=== PATIENT | female | born 2005 | race Caucasian/White ===

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

== ENCOUNTER 2023-07-24 13:30 | Outpatient (RCR) | payer OTHER, SELFPAY | END 2023-09-13 14:11 | disposition home or self-care (01) | PROVIDERS: Visit Provider Orthopaedic Surgery Sports Medicine | DX: M79.A9 Nontraumatic compartment syndrome of other sites (principal); Z98.890 Other specified postprocedural states; M62.81 Muscle weakness (generalized); R26.9 Unspecified abnormalities of gait and mobility; M25.571 Pain in right ankle and joints of right foot; Z51.89 Encounter for other specified aftercare | CPT/HCPCS: 97110; 97112; 97140; 97161 ==

== ENCOUNTER 2023-10-03 23:32 | Emergency (ER) | payer OTHER, SELFPAY ==
[2023-10-03 23:39] VITALS: BP 125/74; PULSE 66; PULSE 68; RESP 18; TEMP 36.7; O2SAT 99; BMI 20.7
--- NOTE | 2023-10-04 00:50 | ED.GENADULT ---
HPI - General Adult General Chief complaint: Back Injury/Pain Stated complaint: back pain/numbness in right arm Time Seen by Provider: 10/03/23 23:45 History of Present Illness HPI narrative: CC: Upper Back Pain w/ Radiation Right Arm pt. with symptoms for 3- 4 days. pain radiates down right arm. denies fevers, n/v. 18-year-old young woman presenting to the emergency department with concern of right neck and upper back atraumatic pain along with feeling numbness and tingling into her right arm with some coldness to the top of her right hand. This seems to have resolved. No loss of strength. She has had soreness in the neck and into her right shoulder intermittently maybe with exercising specifically elliptical as demonstrated and running for some time now. Just really built up over the last few days. Is aggravated a little bit to turn her neck to the right. History of exertional compartment syndrome. Related Data Home Medications ?Medication ?Instructions ?Recorded ?Confirmed aripiprazole 2 mg tablet 4 mg PO QDAY 06/21/23 10/03/23 bupropion HCl 75 mg tablet 75 mg PO QAM 06/21/23 10/03/23 sertraline 100 mg tablet 150 mg PO QDAY 06/21/23 10/03/23 Allergies Allergy/AdvReac Type Severity Reaction Status Date / Time No Known Drug Allergies Allergy Verified 10/03/23 23:42 Review of Systems Status of ROS: Reports: 6 or more systems reviewed and unremarkable except as noted in History and below [facility] Medical History No pertinent past medical history ?Z78.9 - Other specified health status (ICD-10) Surgical History No pertinent past surgical history ?Z78.9 - Other specified health status (ICD-10) Family History Brother Ulcerative colitis Social History Narrative: Student at [employer], sophomore year. Non-smoker. Alcohol, some weekends, not excessive. No illicit drugs. 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 Smoking Status: Never smoker Second hand tobacco smoke exposure: No How often do you have a drink containing alcohol: never AUDIT-C Alcohol total score: 0 Non-prescribed substance use: denies use Exam Narrative: Exam Narrative: Pleasant. NAD. Skin is warm and dry without swelling or erythema. Neck is supple. No midline neck or back tenderness. No deformity. She has some soreness to palpation in the musculature some tension here to upper right side thoracic spine. A little bit in the right paracervical low musculature as well. Well-built musculature over the arms shoulders. No sensory loss at this time apparent. She has strong and equal distal upper extremity pulses. Very good strength bilaterally. No restriction to movement about the shoulders without weakness to resisted internal or external rotation or Neer's testing. Spurling's test is negative. She does however have some worsening of this discomfort and maybe some radiation to the right shoulder with extension of the neck and mild axial pressure Const: Vital Signs, click to edit/add: Vital Signs - 24 hr 10/03/23 23:39 10/03/23 23:39 10/04/23 01:17 Temperature 98.0 F 98.0 F Pulse Rate [Right Pulse Oximeter] 66 Pulse Rate [Right Radial] 68 Respiratory Rate 18 Blood Pressure [Ri ght Upper Arm] 125/74 Pulse Oximetry 99 Oxygen Delivery Me thod Room Air Documenting provider has reviewed patient's vital signs: yes Course Vital Signs Vital signs: Initial Vital Signs Temperature 98.0 F 10/03/23 23:39 Temperature Source Temporal Artery Scan 10/03/23 23:39 Pulse Rate 66 10/03/23 23:39 Pulse Rhythm Regular 10/03/23 23:39 Pulse Strength 3+ Normal 10/03/23 23:39 Respiratory Rate 18 10/03/23 23:39 Blood Pressure 125/74 10/03/23 23:39 Blood Pressure Mean 91 10/03/23 23:39 Blood Pressure Position Sitting 10/03/23 23:39 Pulse Oximetry 99 10/03/23 23:39 Oxygen Delivery Method Room Air 10/03/23 23:39 Vital Signs Temperature 98.0 F 10/03/23 23:39 Pulse Rate 66 10/03/23 23:39 Respiratory Rate 18 10/03/23 23:39 Blood Pressure 125/74 10/03/23 23:39 Pulse Oximetry 99 10/03/23 23:39 Oxygen Delivery Method Room Air 10/03/23 23:39 Temperature 98.0 F 10/04/23 01:35 Pulse Rate 69 10/04/23 01:35 Respiratory Rate 18 10/04/23 01:35 Blood Pressure 118/70 10/04/23 01:35 Pulse Oximetry 99 10/04/23 01:34 Oxygen Delivery Method Room Air 10/04/23 01:34 Medications Administered Medications: Discontinued Medications Generic Name Dose Route Start Last Admin Trade Name Cruz PRN Reason Stop Dose Admin Ibuprofen 800 mg 10/04/23 01:08 10/04/23 01:17 Ibuprofen 400 Mg Tablet PO 10/04/23 01:09 800 mg ONCE ONE Administration Medical Decision Making MDM Narrative Medical decision making narrative: I do not think this represents ischemic event. Does not appear to be compartment syndrome relieved at this time. Does appear to have muscle tension and pain; I am not sure that this can exactly explain the radicular symptoms that were transient as described. There could be some discogenic origin here. No trauma noted. Did discuss potential benefit of x-ray imaging but I think that can be deferred at this time. Together decided to defer imaging. CT not warranted. MRI not available. Given ibuprofen here in the emergency department. See patient discharge plan for further discussion/plan. Discharge Plan Discharge Clinical Impression: Muscle tension pain Patient Disposition: Home, Self-Care Condition: Improved Additional Instructions: You do seem to have a radicular component that you described to your neck discomfort. Not sure that this is clearly discogenic. I think muscle tension might be more related to what you're feeling. See handout on exercises for stretching the upper back. Also remember neck pull-downs as we did. Consider doing all these exercises a couple of times daily over the next few weeks. You might also benefit from seeing massage therapist or physical therapy. Elisha Haynes DC is a chiropractor locally who might be able to help as well. Up to 600 mg of ibuprofen or up to 850 mg of acetaminophen per dose. Alternative to the ibuprofen might be up to 375 mg of naproxen 2 times daily. If you are simply not improved in 2 weeks or clearly worsening, would follow-up for re-evaluation. As discussed though prescribing prednisone and Flexeril from [facility]. Prescriptions: No Action sertraline 100 mg tablet 150 mg PO QDAY bupropion HCl 75 mg tablet 75 mg PO QAM aripiprazole 2 mg tablet 4 mg PO QDAY Follow Up/Referrals: Generic,Amb Provider [Staff Physician] - Stand Alone Forms: [facility] Info Instructions
[2023-10-04 01:17] VITALS: TEMP 36.7
[2023-10-04] MEDS: IBUPROFEN 400 MG TABLET 800 MG PO (01:17)
[2023-10-04 01:34] VITALS: BP 118/70; PULSE 69; RESP 18; TEMP 36.7; O2SAT 99
[2023-10-04 01:35] VITALS: BP 118/70; PULSE 69; RESP 18; TEMP 36.7
== END 2023-10-04 01:35 | disposition home or self-care (01) ==
PROVIDERS: Emergency Provider Family Medicine
DX: S16.1XXA Strain of muscle, fascia and tendon at neck level, initial encounter (principal)
CPT/HCPCS: 99283; 99284; A9270

== ENCOUNTER 2024-07-04 20:02 | Emergency (ER) | payer OTHER, SELFPAY ==
--- OUTSIDE RECORDS SUMMARY | 2024-07-04 20:04 | XMS_ITS | Clinical Summary ---
Author Organization [facility] Address [address] [place] [id number] Care Team Providers Care Rabble Furnace Tender Name Role Phone Pcp, No Primary Care Provider Unavailabl e Allergies No known active allergies Medications sertraline (ZOLOFT) 50 mg tablet 01/12/2022 Active sertraline (ZOLOFT) 100 mg tablet 01/12/2022 Active buPROPion 75 mg tablet 01/12/2022 Active ARIPiprazole (ABILIFY) 2 mg tablet 01/12/2022 Active cholecalciferol , vitamin D3, (VITAMIN D3 ORAL) Take 1 Wafer by mouth. 09/04/2021 Active celecoxib (CELEBREX) 100 mg capsuleIndicati ons:Peroneal tendonitis of left lower extremity Take 1 Capsule (100 mg) by mouth two times daily with meals. 60 Capsule 1 07/13/2022 Active Active Problems No known active problems Social History Tobacco Use Types Packs/Day Years Used Date Smoking Tobacco: Never Smokeless Tobacco: Never Tobacco Cessation:Counseling Given: Yes Alcohol Use Standard Drinks/Week Comments Yes 0 (1 standard drink = 0.6 oz pur e alcohol) on occasion Social Connections Answer Date Recorded Frequency of Communication with Friends and Fami ly Not on file 02/09/2022 Comments Unknown Sex and Gender Information Value Date Recorded Sex Assigned at Not on file Legal Sex Female 9:44 AM CDT Gender Identity Not on file Sexual Orientation Not on file Obstetrics History Last Filed Vital Signs Vital Sign Reading Time Taken Comments Blood Pressure 130/78 05/21/2023 3:04 PM HEDIS COORDINATOR man ual BP Pulse 87 05/21/2023 3:04 PM HEDIS COORDINATOR Temperature 36.6 C (97.9 F) 05/21/2023 3:04 PM HEDIS COORDINATOR Respiratory Rate - - Oxygen Saturation 97% 05/21/2023 3:04 PM HEDIS COORDINATOR Inhaled Oxygen Concentration - - Weight 66.7 kg (147 lb) 05/21/2023 3:04 PM HEDIS COORDINATOR s hoes on Height 172.5 cm (5' 7.91) 02/23/2022 3:15 PM CD T Body Mass Index - - Plan of Treatment Upcoming Encounters Date Type Department Care Team (Late st Contact Info) Description 07/08/2024 10:40 AM HEDIS COORDINATOR Office Visit [facility] [address] [place] [address] Fabiana Ogden MD [address] [place] [address] Health Maintenance Due Date Last Done Comments Well Child Check for age 3-20 07/17/2006 Tdap 08/17/2014 Depression screening for age 12+ 2015 HIV for age 15-65 08/17/2018 HPV series for age 9-26 (1 - 3-dose series) 08/17/2018 Chlamydia for age 16-24 2019 Hepatitis C screening for age 18-79 08/17/2021 BMI (ht and wt on same day) for age 18+ 02/23/2023 02/23/2022, 02/09/2022 Tetanus booster 2023 COVID-19 vaccine series ( season) 2024 02/08/2022, 05/01/2021, 09/10/2020, Additional history exists Influenza for age 9-49 01/13/2024 Meningococcal series for age 11-21 Aged Out No longer eligible based on patient's age to complete this topic Pneumococcal series for age 6-49 Aged Out No longer eligible based on patient's age to complete this topic Insurance Care Teams Rabble Furnace Tender Relationship Specialty Start Date End Date Pcp, No . PCP - General 02/09/22
[2024-07-04 20:10] VITALS: BP 119/68; PULSE 86; RESP 16; TEMP 36.3; O2SAT 98; BMI 19.9
--- NOTE | 2024-07-04 20:34 | CRLHL7_ITS ---
For Patients: As a result of the Century Cures Act, medical imaging exams and procedure reports are released immediately into your electronic medical record. You may view this report before your referring provider. If you have questions, please contact your health care provider. INDICATION: WORSENING HEADACHE X2 WEEKS TECHNIQUE: Non-contrast CT of the head is submitted. COMPARISON: None. FINDINGS: The ventricles, sulci and gyri are of normal size, shape and contour. Midline structures are centrally located. No convincing evidence of intra- or extra-axial fluid collections. IMPRESSION: No radiographic evidence of acute intracranial abnormalities. Please note that all CT scans at this facility use dose modulation, iterative reconstruction, and/or weight-based dosing when appropriate to reduce radiation dose to as low as reasonably achievable. Dictated by Beltran Martin MD @ 07/04/2024 9:36:52 PM (Electronically Signed)
--- NOTE | 2024-07-04 20:34 | ED_ITS ---
HPI - Headache General Date Seen: 07/04/24 Chief Complaint: Headache/Migraine Stated Complaint: Headaches for 2 weeks Time Seen by Provider: 07/04/24 20:25 Source: patient Mode of arrival: ambulatory Limitations: no limitations History of Present Illness HPI Narrative: Patient is a 18-year-old female presenting to the emergency department for a headache. She denies having headaches like this before. States has been going on for 2 and half weeks have been getting worse. Initially states pain just behind her right eye but has since moved to be higher left eye also. Pain seems to be constant. 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 She tried burning again today and again did not feel like she was able to. Describes the dizziness as a easy vision. Did not feel like she was going to pass out. Other than that has not noticed any vision changes. Denies chest pain, shortness of breath, lightheadedness, abdominal pain, diarrhea, constipation, fevers, chills, rhinorrhea. States shows the only time she has had a headache was related to a sinus infection and she took antibiotics for Ativan helped. Was given antibiotics again by her school and has almost finished without any improvement. Unsure what the medication was. Has seen urgent care and given Toradol which has not helped. Related Data Home Medications ?Medication ?Instructions ?Recorded ?Confirmed bupropion HCl 75 mg tablet 75 mg PO QAM 06/21/23 07/02/24 sertraline 100 mg tablet 150 mg PO QDAY 06/21/23 07/02/24 Allergies Allergy/AdvReac Type Severity Reaction Status Date / Time No Known Drug Allergies Allergy Verified 07/02/24 18:58 Review of Systems Status of ROS: Reports: 10 or more systems reviewed and unremarkable except as noted in History and below [facility] Medical History No pertinent past medical history ?Z78.9 - Other specified health status (ICD-10) Surgical History No pertinent past surgical history ?Z78.9 - Other specified health status (ICD-10) Family History Brother Ulcerative colitis Social History Narrative: Student at [employer], sophomore year. Non-smoker. Alcohol, some weekends, not excessive. No illicit drugs. 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 Smoking Status: Never smoker Second hand tobacco smoke exposure: No How often do you have a drink containing alcohol: never AUDIT-C Alcohol total score: 0 Non-prescribed substance use: denies use service: No Exam Narrative: Exam Narrative: Const: Well-nourished, Well-developed, in mild distress Eyes: PERRL, no conjunctival injection, and symmetrical lids HENT: Atraumatic external nose and ears. Moist mucous membranes. No sinus tenderness Neck: Symmetric, trachea midline, No thyromegaly. CVS: RRR, No murmurs or gallops. Peripheral pulses 2+ and equal in all extremities RESP: Unlabored respiratory effort. Clear to auscultation bilaterally. GI: Nontender/Nondistended, No rebound or guarding. MSK:Extremities w/o deformity, Normal Active ROM Skin: Warm, Dry. No rashes or lesions. Neuro: Normal Muscle tone, Cranial nerves 2-12 grossly intact, normal [id number], normal [id number], normal gait, normal strength 5/5 upper lower extremities bilaterally, normal sensation upper and lower extremities bilaterally, normal rapid alternating movements. Psych: Awake, Alert, & Oriented x3. Appropriate mood and affect. Const: Vital Signs, click to edit/add: Vital Signs - 24 hr 07/04/24 20:10 Temperature 97.3 F L Pulse Rate [Pulse Oximeter] 86 Respiratory Rate 16 Blood Pressure [Ri ght Upper Arm] 119/68 Pulse Oximetry 98 Course Vital Signs Vital signs: Initial Vital Signs Temperature 97.3 F L 07/04/24 20:10 Temperature Source Temporal Artery Scan 07/04/24 20:10 Pulse Rate 86 07/04/24 20:10 Pulse Rhythm Regular 07/04/24 20:10 Respiratory Rate 16 07/04/24 20:10 Blood Pressure 119/68 07/04/24 20:10 Blood Pressure Mean 85 07/04/24 20:10 Blood Pressure Position Sitting 07/04/24 20:10 Pulse Oximetry 98 07/04/24 20:10 Vital Signs Temperature 97.3 F L 07/04/24 20:10 Pulse Rate 86 07/04/24 20:10 Respiratory Rate 16 07/04/24 20:10 Blood Pressure 119/68 07/04/24 20:10 Pulse Oximetry 98 07/04/24 20:10 Temperature 97.3 F L 07/04/24 20:10 Pulse Rate 86 07/04/24 20:10 Respiratory Rate 16 07/04/24 20:10 Blood Pressure 119/68 07/04/24 20:10 Pulse Oximetry 98 07/04/24 20:10 Medications Administered Medications: Generic Name Dose Route Start Last Admin Trade Name Freq PRN Reason Stop Dose Admin Sodium Chloride 1,000 mls @ 1,000 mls/hr 07/04/24 20:45 07/04/24 20:51 0.9 % Sodium Chloride 1000 Ml IV 07/04/24 21:44 1,000 mls/hr .Q1H ANDRZEJ Administration Discontinued Medications Generic Name Dose Route Start Last Admin Trade Name Freq PRN Reason Stop Dose Admin Diphenhydramine HCl 25 mg 07/04/24 20:33 07/04/24 20:50 Diphenhydramine 50 Mg/Ml Inj IVP 07/04/24 20:34 25 mg ONCE ONE Administration Ketorolac Tromethamine 15 mg 07/04/24 20:33 07/04/24 20:50 Ketorolac 15 Mg/Ml Inj IVP 07/04/24 20:34 15 mg ONCE ONE Administration Metoclopramide HCl 10 mg 07/04/24 20:33 07/04/24 20:50 Metoclopramide Hcl 5 Mg/Ml Inj IVP 07/04/24 20:34 10 mg ONCE ONE Administration MDM - Headache MDM Narrative Medical decision making narrative: Patient is a 18-year-old female presenting to emergency department for headache. Will do a head CT to look for an intracranial abnormalities as this has been ongoing headache for 2 weeks that he has never had issues with before. Also give her a migraine cocktail. Her neurological exam is normal. Patient is feeling better after the migraine cocktail. CT scan reviewed by myself and the radiologist shows no concerning abnormalities. At this time I feel comfortable discharging the patient. She is agreeable to this plan. Imaging Data CT scan - head: Attestation: I have reviewed the pertinent imaging results. Radiologist's impression: No radiographic evidence of acute intracranial abnormalities. Please note that all CT scans at this facility use dose modulation, iterative reconstruction, and/or weight-based dosing when appropriate to reduce radiation dose to as low as reasonably achievable. Dictated by Beltran Martin MD @ 07/04/2024 9:36:52 PM Discharge Plan Discharge Clinical Impression: Headache Qualifiers: Headache type: other headache syndrome Qualified Code(s): G44.89 - Other headache syndrome Patient Disposition: Home, Self-Care Condition: Stable Instructions: Acute Headache (DC) Additional Instructions: If you continued to have headache issues try setting up primary care for follow- up otherwise you can try and get in with neurology. Recommend taking Tylenol and ibuprofen for headaches to stay ahead of the pain. Return for any other new or worsening symptoms. Prescriptions: No Action sertraline 100 mg tablet 150 mg PO QDAY bupropion HCl 75 mg tablet 75 mg PO QAM Follow Up/Referrals: Provider,Not a Local [Primary Care Provider] - Stand Alone Forms: [email or web address] Info Instructions
--- OUTSIDE RECORDS SUMMARY | 2024-07-04 20:43 | XMS_ITS | Clinical Summary ---
Author Organization [facility] Address [address] [place] [id number] Care Team Providers Care Supervisor Public Message Service Name Role Phone Pcp, No Primary Care [...] Comments Blood Pressure 130/78 05/21/2023 3:04 PM PRINT DESIGNER man ual BP Pulse 87 05/21/2023 3:04 PM PRINT DESIGNER Temperature 36.6 C (97.9 F) 05/21/2023 3:04 PM PRINT DESIGNER Respiratory Rate - - Oxygen Saturation 97% 05/21/2023 3:04 PM PRINT DESIGNER Inhaled Oxygen Concentration - - Weight 66.7 kg (147 lb) 05/21/2023 3:04 PM PRINT DESIGNER s hoes on Height 172.5 cm (5' 7.91) 02/23/2022 3:15 PM CD T Body Mass Index - - Plan of Treatment Upcoming Encounters Date Type Department Care Team (Late st Contact Info) Description 07/08/2024 10:40 AM PRINT DESIGNER Office Visit [facility] [address] [place] [address] Fabiana Ogden MD [address] [place] [address] Health Maintenance Due Date Last Done Comments [...] to complete this topic Insurance Care Teams Supervisor Public Message Service Relationship Specialty Start Date End Date Pcp, No . PCP - General 02/09/22
[2024-07-04] MEDS: diphenhydrAMINE 50 MG/ML inj 25 MG IVP (20:50)
[2024-07-04] MEDS: METOCLOPRAMIDE HCL 5 MG/ML INJ 10 MG IVP (20:50)
[2024-07-04] MEDS: KETOROLAC 15 MG/ML inj IVP (20:50)
[2024-07-04] MEDS: 0.9 % SODIUM CHLORIDE 1000 ml 1,000 ML IV (20:51)
[2024-07-04 21:53] VITALS: BP 102/59; PULSE 61; RESP 16
== END 2024-07-04 21:55 | disposition home or self-care (01) ==
PROVIDERS: Emergency Provider Student in an Organized Health Care Education/Training Program
DX: G44.89 Other headache syndrome (principal)
CPT/HCPCS: 70450; 96374; 96375; 99283; 99284; J1200; J1885; J2765; J7030

== ENCOUNTER 2024-07-18 01:07 | Emergency (ER) | payer OTHER, SELFPAY ==
--- OUTSIDE RECORDS SUMMARY | 2024-07-18 01:09 | XMS_ITS | Clinical Summary ---
Author Organization [facility] Address [address] [place] [id number] Care Team Providers Care Court Recorder Name Role Phone Pcp, No Primary Care [...] Comments Blood Pressure 130/78 05/21/2023 3:04 PM ENVIRONMENTAL LAW PROFESSOR man ual BP Pulse 87 05/21/2023 3:04 PM ENVIRONMENTAL LAW PROFESSOR Temperature 36.6 C (97.9 F) 05/21/2023 3:04 PM ENVIRONMENTAL LAW PROFESSOR Respiratory Rate - - Oxygen Saturation 97% 05/21/2023 3:04 PM ENVIRONMENTAL LAW PROFESSOR Inhaled Oxygen Concentration - - Weight 66.7 kg (147 lb) 05/21/2023 3:04 PM ENVIRONMENTAL LAW PROFESSOR s hoes on Height 172.5 cm (5' 7.91) 02/23/2022 3:15 PM CD T Body Mass Index - - Plan of Treatment Health Maintenance Due Date Last Done Comments [...] 02/09/2022 Tetanus booster 2023 COVID-19 vaccine series (2023- season) 2024 02/08/2022, 05/01/2021, 09/10/2020, Additional history exists Influenza for age 9-49 01/13/2024 Meningococcal series for age 11-21 Aged Out No longer eligible based on patient's age to complete this topic Pneumococcal series for age 6-49 Aged Out No longer eligible based on patient's age to complete this topic Insurance [address] [id number] Rec[address] Relationship Specialty Start Date End Date Pcp, No . PCP - General 02/09/22
[2024-07-18 01:10] VITALS: BP 124/86; PULSE 110; RESP 18; TEMP 36.3; O2SAT 96; BMI 19.9
--- NOTE | 2024-07-18 01:25 | ED.GENADULT ---
HPI - General Adult General Chief complaint: Nausea/Vomiting Stated complaint: nausea, headache Time Seen by Provider: 07/18/24 01:21 History of Present Illness HPI narrative: patient is a 18-year-old woman who presents with 5 hours of nausea and vomiting. She has had no diarrhea. No change in her urination. She has cluster headaches and is on verapamil. She also takes Wellbutrin for OCD as well as sertraline. Patient states that she is not . She has no abdominal pain. No fevers no chills no night sweats. No blood in her vomitus. No current headache. Patient has had no recent sick contacts and no recent travel. Related Data Home Medications ?Medication ?Instructions ?Recorded ?Confirmed bupropion HCl 75 mg tablet 75 mg PO QAM 06/21/23 07/18/24 sertraline 100 mg tablet 150 mg PO QDAY 06/21/23 07/18/24 Previous Rx's ?Medication ?Instructions ?Recorded verapamil 120 mg 24 hr 120 mg PO QDAY #30 caps 07/08/24 capsule,extended release Allergies Allergy/AdvReac Type Severity Reaction Status Date / Time No Known Drug Allergies Allergy Verified 07/18/24 01:17 Review of Systems Status of ROS: Reports: 10 or more systems reviewed and unremarkable except as noted in History and below [facility] Medical History Migraines ?G43.909 - Migraine, unspecified, not intractable, without status migrainosus (ICD-10) Thoracic outlet syndrome ?G54.0 - Brachial plexus disorders (ICD-10) Compartment syndrome ?T79.A0XA - Compartment syndrome, unspecified, initial encounter (ICD-10) No pertinent past medical history ?Z78.9 - Other specified health status (ICD-10) Surgical History No pertinent past surgical history ?Z78.9 - Other specified health status (ICD-10) Family History Brother Ulcerative colitis Social History Narrative: Student at [employer], sophomore year. Non-smoker. Alcohol, some weekends, not excessive. No illicit drugs. 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 What is your current living situation?: I presently have a place to live Problems where you live: no known problems In the past 12 months, utilities in danger of being shut off: no In past 12 months, lack of transportation kept you from medical appts, meetings, work, or getting things needed for daily living: no In the past 12 mos, have been you worried that your food would run out before you had money to buy more?: never true In the past 12 mos, the food you bought just didn't last and you didn't have money to buy more?: never true Smoking Status: Never smoker Second hand tobacco smoke exposure: No How often do you have a drink containing alcohol: never AUDIT-C Alcohol total score: 0 Non-prescribed substance use: denies use How often does anyone, including family, friends and others, physically hurt you: never How often does anyone, including family, friends and others, insult or talk down to you: never How often does anyone, including family, friends and others, threaten you with harm: never How often does anyone, including family, friends and others, scream or curse at you: never service: No Exam Narrative: Exam Narrative: EXAM GENERAL: Patient appears Anxious. EYES: No scleral icterus. ENT: Tympanic membranes and oropharynx normal. THYROID: no thyroid nodules or thyromegaly. LYMPH: No supraclavicular or cervical lymphadenopathy. SKIN: Visible skin seen during exam normal or with benign process only. EXT: No dependent lower extremity pedal edema. HEART: Regular rate and rhythm with no murmurs, rubs, or gallops. LUNGS: Clear to auscultation bilaterally with no crackles or wheezes. ABD: Soft, non tender, non distended. PSYCH: Good eye contact, speech is not pressured. Const: Vital Signs, click to edit/add: Vital Signs - 24 hr 07/18/24 01:10 Temperature 97.3 F L Pulse Rate [Right Pulse Oximeter] 110 H Respiratory Rate 18 Blood Pressure [Ri ght Upper Arm] 124/86 Pulse Oximetry 96 Oxygen Delivery Me thod Room Air Course Course ED Course: Saline lock placed . CBC comprehensive metabolic panel lipase test ordered. I did give her L of normal saline 4 mg of IV Zofran. Vital Signs Vital signs: Initial Vital Signs Temperature 97.3 F L 07/18/24 01:10 Temperature Source Temporal Artery Scan 07/18/24 01:10 Pulse Rate 110 H 07/18/24 01:10 Respiratory Rate 18 07/18/24 01:10 Blood Pressure 124/86 07/18/24 01:10 Blood Pressure Mean 98 07/18/24 01:10 Blood Pressure Position Sitting 07/18/24 01:10 Pulse Oximetry 96 07/18/24 01:10 Oxygen Delivery Method Room Air 07/18/24 01:10 Vital Signs Temperature 97.3 F L 07/18/24 01:10 Pulse Rate 110 H 07/18/24 01:10 Respiratory Rate 18 07/18/24 01:10 Blood Pressure 124/86 07/18/24 01:10 Pulse Oximetry 96 07/18/24 01:10 Oxygen Delivery Method Room Air 07/18/24 01:10 Temperature 97.3 F L 07/18/24 01:10 Pulse Rate 110 H 07/18/24 01:10 Respiratory Rate 18 07/18/24 01:10 Blood Pressure 124/86 07/18/24 01:10 Pulse Oximetry 96 07/18/24 01:10 Oxygen Delivery Method Room Air 07/18/24 01:10 Medications Administered Medications: Generic Name Dose Route Start Last Admin Trade Name Freq PRN Reason Stop Dose Admin Sodium Chloride 1,000 mls @ 1,000 mls/hr 07/18/24 01:24 07/18/24 01:30 0.9 % Sodium Chloride 1000 Ml IV 07/18/24 02:23 1,000 mls/hr .Q1H ANDRZEJ Administration Ondansetron HCl 4 mg 07/18/24 01:24 07/18/24 01:30 Ondansetron 2 Mg/Ml Inj IVP 07/18/24 01:25 4 mg ONCE ONE Administration Medical Decision Making MDM Narrative Medical decision making narrative: Patient presents with a nausea and vomiting consistent with gastroenteritis. I did give her L and half normal saline 4 mg of Zofran with resolution of her symptoms. She is chronic headaches which are reasonably stable at this time but having given her chronic issues. She has had no diarrhea or abdominal pain. At this point I did offer reassurance I recommended Tylenol Motrin rest fluids Zofran. To follow-up with her primary physician as needed. Lab Data Labs: Lab Results 07/18/24 Range/Units 01:23 WBC 20.21 H (4.50-11.00) K/uL RBC 4.72 (4.00-5.20) m/uL Hgb 14.4 (12.0-16.0) gm/dL Hct 43.7 (33.0-51.0) % MCV 93 (80-100) fL MCH 31 (26-34) pg MCHC 33 (32-36) gm/dL RDW Coeff of Bea 11.7 (11.5-15.5) % Plt Count 296 (140-440) K/uL Neut % (Auto) 94.5 H (42.0-72.0) % Lymph % (Auto) 2.0 L (20-44) % [place] % (Auto) 2.9 (0.0-11.0) % Eos % (Auto) 0.3 (0.0-7.0) % Baso % (Auto) 0.0 (0.0-3.0) % Neut # (Auto) 19.10 H (1.7-7.0) K/uL Lymph # (Auto) 0.40 L (0.90-2.90) K/uL [place] # (Auto) 0.60 (0.00-0.90) K/UL Eos # (Auto) 0.10 (0.00-0.50) K/uL Baso # (Auto) 0.00 (0.00-0.30) K/uL Abs Immat Gran (auto) 0.10 (0.00-0.30) K/uL Imm/Tot Granulo (auto) 0.3 % Sodium 138 (135-149) mmol/L Potassium 4.3 (3.6-5.1) mmol/L Chloride 102 (96-114) mmol/L Carbon Dioxide 23 (20-32) mmol/L Anion Gap 13 (7-15) mEq/L BUN 20 (5-24) mg/dL Creatinine 0.6 (0.5-1.5) mg/dL Estimated Creat Clear 144.58 Estimated GFR 132 ml/min Glucose 132 H (60-115) mg/dL Calcium 9.2 (8.4-10.6) mg/dL Total Bilirubin 0.7 (0.1-1.5) mg/dL AST 36 H (12-35) U/L ALT 26 (4-35) U/L Alkaline Phosphatase 70 (40-150) U/L Total Protein 7.8 (6.0-8.3) g/dL Albumin 5.1 H (3.3-5.0) g/dL Lipase 46 (23-300) U/L Discharge Plan Discharge Clinical Impression: Vomiting Patient Disposition: Home, Self-Care Condition: Stable Instructions: Acute Nausea and Vomiting (ED) Additional Instructions: Zofran as directed Tylenol Rest Follow-up with your doctor as needed. Activity Level: No Restrictions Discharge Diet: Regular Prescriptions: No Action verapamil 120 mg capsule,ext rel. pellets 24 hr 120 mg PO QDAY Qty: 30 2RF sertraline 100 mg tablet 150 mg PO QDAY bupropion HCl 75 mg tablet 75 mg PO QAM Follow Up/Referrals: Provider,Not a Local [Primary Care Provider] - Stand Alone Forms: [facility] [employer] Info Instructions
[2024-07-18] MEDS: ONDANSETRON 2 MG/ML inj 4 MG IVP (01:30)
[2024-07-18] MEDS: 0.9 % SODIUM CHLORIDE 1000 ml 1,000 ML IV (01:30)
[2024-07-18 01:33] LABS: Eosinophils Percent Auto 0.3 % (0.0-7.0); Hematocrit 43.7 % (33.0-51.0); Hemoglobin* 14.4 gm/dL (12.0-16.0); Immature Granulocytes Pct Auto 0.3 %; Mean Corpuscular HGB Conc 33 gm/dL (32-36); Mean Corpuscular Hemoglobin 31 pg (26-34); Mean Corpuscular Volume 93 fL (80-100); Monocytes Percent Auto 2.9 % (0.0-11.0); Neutrophils Percent Auto 94.5 % (42.0-72.0); Platelet Count* 296 K/uL (140-440); RDW Coefficient of Variation % 11.7 % (11.5-15.5); Red Blood Count 4.72 m/uL (4.00-5.20); White Blood Count* 20.21 K/uL (4.50-11.00)
[2024-07-18 01:39] LABS: Slide Review Reflex No
[2024-07-18 01:45] LABS: Albumin* 5.1 g/dL (3.3-5.0)
[2024-07-18 01:46] LABS: Chloride* 102 mmol/L (96-114); Potassium* 4.3 mmol/L (3.6-5.1); Sodium* 138 mmol/L (135-149)
[2024-07-18 01:48] LABS: Alkaline Phosphatase* 70 U/L (40-150); Anion Gap 13 mEq/L (7-15); Aspartate Amino Transferase* 36 U/L (12-35); Bilirubin Total* 0.7 mg/dL (0.1-1.5); Blood Urea Nitrogen* 20 mg/dL (5-24); Carbon Dioxide* 23 mmol/L (20-32); Creatinine* 0.6 mg/dL (0.5-1.5); Est. Creatinine Clearance* 144.58; Estimated Glomerular Filt Rate 132 ml/min; Total Protein* 7.8 g/dL (6.0-8.3)
[2024-07-18 01:49] LABS: Alanine Aminotransferase* 26 U/L (4-35); Calcium* 9.2 mg/dL (8.4-10.6); Glucose* 132 mg/dL (60-115); Lipase* 46 U/L (23-300)
[2024-07-18] MEDS: 0.9 % SODIUM CHLORIDE 500 ML 500 ML IV (02:08)
[2024-07-18 02:12] LABS: HCG Qualitative Serum* Negative (Negative)
[2024-07-18 02:13] LABS: Appearance Urine Clear (Clear); Bilirubin Urine Negative (Negative); Blood Urine Negative (Negative); Color Urine Yellow (Yellow); Glucose Urine Negative (Negative); Ketones Urine Negative (Negative); Leukocyte Esterase Urine Negative (Negative); Nitrite Urine Negative (Negative); Protein Urine 1+ (Negative); RBC Urine 0-2 (0-2); Specific Gravity Urine 1.015 (1.000-1.030); Squamous Epithelial Cell Urine Few (None-Few); Urobilinogen Urine 0.2 (0.2-1.0); WBC Urine 0-2 (0-5); pH Urine 8.5 (5.0-8.5)
--- OUTSIDE RECORDS SUMMARY | 2024-07-18 02:16 | XMS_ITS | Clinical Summary ---
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 PCP - General 02/09/22
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
--- OUTSIDE RECORDS SUMMARY | 2024-07-18 02:16 | XMS_ITS | Data Portability ---
Author Organization [facility], [facility] Address [address] [place] [id number] Assessment Encounter Date Assessment Date Assessment LastModified by Organization Details LastModified Time 10/31/2023 10/31/2023 Well-woman visit with gynecologic examination. Pap/HPV recommendations discussed. Shared decision making on the subject of cervical cancer screening. . Not available 10/31/2023 13:27:33 Plan of Treatment Reminders Order Date Submit Date Provider Last Modified By Organization Details Last Modified Time Details Appointments None record ed. Lab pregna ncy test, urine 2023 024 [facility]_[address], [address], 4 10:56:10 urinal ysis, dipsti ck 2023 024 [facility], [address], 4 10:56:11 cultur e, urine 2023 024 [facility], [address] [place] [address], [address], 4 10:56:08 urinal ysis, dipsti ck 2022 023 [email or web address] [facility], 73 [facility], [place], [address], 3 12:55:36 tb (M tuberc ulosis ), ifn-ga mma tonio, blood 2022 023 [facility], [address] [place] [address], [address], [place], [address], 3 08:26:59 lipid panel, serum 2022 023 [email or web address] [facility], [address] [place] [address], [facility] 3, [place], [address], 3 10:29:44 CBC w/ diff 2022 023 [facility], [address] [place] [address], [address], [place], [address], 3 14:19:06 iron + total iron-b inding capaci ty (TIBC) , serum 2022 023 [facility], [address] [place] [address], [address], [place], [address], 3 14:19:09 Referral pelvic floor therap y referr al [address] [facility], [address] [place] [address], [address], 4 16:29:56 Procedures None record ed. Surgeries None record ed. Imaging None record ed. Medication Orders Macrob id 100 mg capsul e 2023 024 [id number], [address] [facility] [place], [id number], 4 15:20:39 Qbrexz a 2.4 % towele tte 2021 022 [facility] [place] [place], [address] , [place], [place], [id number], 09:41:08 Patient TargetsNo targets recorded. 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 Please be advised that test results may be available to you before they are available for review by your provider. Office notes and patient care summaries will also be available to you. If you have any questions regarding any notes or results please call the office or reach out to your provider via the portal. Not available 10/31/2023 13:27:33 Monthly self breast exam is encouraged. Condom use is encouraged. control preference noted if applicable. Not available 10/31/2023 13:27:33 12/09/2023 [id number] Urinary tract infection (UTI). Please start your antibiotics immediately, as prescribed. Complete the full course. Use a pyridine medication to alleviate some of your symptoms before the antibiotics can work. Use as needed up to three times per day for two days (3x/day x2 days). They typically turn your urine bright orange or red. Brands include AZO, Cystex, Pyridium, Uristat, and others. Drink plenty of water to flush out bacteria from your bladder. If your urine was sent to the lab for culture, we will only call you if a change needs to be made to your regimen. Otherwise, you can call the Urgent Care in three days for results. A follow up appointment with your primary provider or a urologist may be necessary if you have had recurrent or persistent infections, are a child or man, or have had previous negative urine cultures. Some strategies to prevent a urinary tract infection include: wiping front to back, urinating before or after intercourse, drinking cranberry juice. Please get the [facility] , an e mail has been sent to you [email or web address] Not available 12/09/2023 10:56:18 Reason for Referral Pelvic Floor Therapy Referra l for Pelvic floor dysfunction Referring Physician: Jessica Morton, DAIRY MANAGER, Encounter Date: 10/31/2023 Results Created Date Observation Date Name Description Value Unit Range Abnormal Flag Note LastModifiedBy Organization Detail LastModifiedTime 12/13/1912/12/2021 SICKL E CELL SCR W RFX [id number] A hemoglobin (HGB) solubility Negati ve negati ve normal Not Available [facility] [address], [place], [address], 12/13/2021 23:06:11 11/03/19 23 11/02/2022 COMPL ETE BLOOD COUNT W/ DIFF bc-WBC 6.5 thous /mcL 3.8-11 .8 normal Not Available [facility] [address], [place], [address], 11/02/2022 14:19:06 11/03/19 23 11/02/2022 COMPL ETE BLOOD COUNT W/ DIFF bc-HGB 13.3 g/dL 11.1-1 5.3 normal Not Available [facility] [address], [place], [address], 11/02/2022 14:19:06 11/03/19 23 11/02/2022 COMPL ETE BLOOD COUNT W/ DIFF bc-HCT 40.2 % 33.3-4 5.9 normal Not Available [facility] [address], [place], [address], 11/02/2022 14:19:06 11/03/19 23 11/02/2022 COMPL ETE BLOOD COUNT W/ DIFF bc-plt 260 thous /mcL 140-40 0 normal Not Available [facility] [address], [place], [address], 11/02/2022 14:19:06 11/03/19 23 11/02/2022 COMPL ETE BLOOD COUNT W/ DIFF bc-nasir# 4.00 thous /mcL 1.90-8 .20 normal Not Available [facility] [address], [place], [address], 11/02/2022 14:19:06 11/03/19 23 11/02/2022 COMPL ETE BLOOD COUNT W/ DIFF bc-lymph# 1.90 thous /mcL 1.00-4 .00 normal Not Available [facility] [address], [place], [address], 11/02/2022 14:19:06 11/03/19 23 11/02/2022 COMPL ETE BLOOD COUNT W/ DIFF bc-monos# 0.40 thous /mcL 0.20-1 .10 normal Not Available [facility] [address] [place] [address] 3, [place], [address], 11/02/2022 14:19:06 11/03/19 23 11/02/2022 COMPL ETE BLOOD COUNT W/ DIFF bc-eos# 0.10 thous /mcL 0.00-0 .50 normal Not Available [facility] [address] [place] [address] 3, [place], [address], 11/02/2022 14:19:06 11/03/19 23 11/02/2022 COMPL ETE BLOOD COUNT W/ DIFF bc-baso# 0.00 thous /mcL 0.00-0 .36 normal Not Available [facility] [address] [place], [place] [address]r 3, [place], [address], 11/02/2022 14:19:06 11/03/19 23 11/02/2022 COMPL ETE BLOOD COUNT W/ DIFF bc-nasir% 61.2 % 42.7-7 6.8 normal Not Available [facility] [address], [place], [address], 11/02/2022 14:19:06 11/03/19 23 11/02/2022 COMPL ETE BLOOD COUNT W/ DIFF bc-lymphs% 29.8 % 15.0-4 4.0 normal Not Available [facility] [address] [facility], [place], [address], 11/02/2022 14:19:06 11/03/19 23 11/02/2022 COMPL ETE BLOOD COUNT W/ DIFF bc-monos% 6.7 % 4.3-10 .9 normal Not Available [facility] [address] [facility], [place], [address], 11/02/2022 14:19:11/03/19 23 11/02/2022 COMPL ETE BLOOD COUNT W/ DIFF bc-eos% 1.8 % 0.0-8. 1 normal Not Available [facility] [address] [place] [address] [address], [place], [address], 11/02/2022 14:19:06 11/03/19 23 11/02/2022 COMPL ETE BLOOD COUNT W/ DIFF bc-baso% 0.5 % 0.0-3. 0 normal Not Available [facility] [address] [place] [address] [address], [place], [address], 11/02/2022 14:19:06 11/03/19 23 11/02/2022 COMPL ETE BLOOD COUNT W/ DIFF bc-RBC 4.37 cierra ons/m cL 3.60-4 .90 normal Not Available [facility] [address] [place], [place] [address] [address], [place], [address], 11/02/2022 14:19:06 11/03/19 23 11/02/2022 COMPL ETE BLOOD COUNT W/ DIFF bc-MCV 92.0 fL 81.0-9 9.0 normal Not Available [facility] [address], [place], [address], 11/02/2022 14:19:06 11/03/19 23 11/02/2022 COMPL ETE BLOOD COUNT W/ DIFF bc-MCH 30.30 pg 24.70- 32.80 normal Not Available [facility] [address], [place], [address], 11/02/2022 14:19:06 11/03/19 23 11/02/2022 COMPL ETE BLOOD COUNT W/ DIFF bc-MCHC 33.0 g/dL 32.0-3 6.0 normal Not Available [facility] [address], [place], [address], 11/02/2022 14:19:06 11/03/19 23 11/02/2022 COMPL ETE BLOOD COUNT W/ DIFF bc-RDW 13.1 % 12.3-1 7.7 normal Not Available [facility] [address], [place], [address], 11/02/2022 14:19:06 11/03/19 23 11/02/2022 CORON TONE RISK PROFI LE cholesterol 142 mg/dL 50-200 normal Not Available [facility] [address], [place], [address], 11/02/2022 14:25:01 11/03/19 23 11/02/2022 CORON TONE RISK PROFI LE HDLC 60 mg/dL 40-60 normal Not Available [facility] [address], [place], [address], 11/02/2022 14:25:01 11/03/19 23 11/02/2022 CORON TONE RISK PROFI LE triglyceride 64 mg/dL 21-200 normal geoffrey l:<15 0 borde rline :150- 199 high: 200-4 99 very high: >500 Not Available [facility] [address], [place], [address], 11/02/2022 14:25:01 11/03/19 23 11/02/2022 CORON TONE RISK PROFI LE calculated LDL 69 mg/dL 20-100 normal Not Available [facility] [address], [place], [address], 11/02/2022 14:25:01 11/03/19 23 11/02/2022 CORON TONE RISK PROFI LE non-HDL 82.00 mg/dL Not Available [facility] [address], [place], [address], 11/02/2022 14:25:01 11/03/19 23 11/02/2022 CORON TONE RISK PROFI LE cholesterol/ HDL ratio 2.37 ratio Not Available [facility] [address], [place], [address], 11/02/2022 14:25:01 11/03/19 23 11/02/2022 IRON DEFIC IENCY PROFI LE 1iron 78 ug/dL 50-170 normal Not Available [facility] [address], [place], [address], 11/02/2022 14:25:02 11/03/19 23 11/02/2022 IRON DEFIC IENCY PROFI LE 1TIBC 387 ug/dL 250-45 0 normal Not Available [facility] [address], [place], [address], 11/02/2022 14:25:02 11/03/19 23 11/02/2022 IRON DEFIC IENCY PROFI LE 1ferritin 14.9 NG/mL 8.0-25 2.0 normal Not Available [facility] [address], [place], [address], 11/02/2022 14:25:02 11/03/19 23 11/02/2022 IRON DEFIC IENCY PROFI LE 1%sat 20 % 15-50 normal Not Available [facility] [address] [facility] [address] [address], [place], [address], 11/02/2022 14:25:02 11/03/19 23 11/02/2022 QUANT IFERO N - TB GOLD PLUS (CLIE NT INCUB ATED) quantiferon criteria COMMEN T Quant iFERO N-TB Gold Plus is a quali tativ e indir ect test for M tuber culos is infec tion (incl uding disea se) and is inten ded for use in conju nctio n with risk asses sment , radio graph y, and other medic al and diagn ostic evalu ation s. The Quant iFERO N-TB Gold Plus resul t is deter mined by subtr actin g the Nil value from eithe r TB antig en (Ag) value . The Mitog en tube serve s as a contr ol for the test. Not Available [facility] [address], [place], [address], 11/05/2022 08:26:59 11/03/19 23 11/02/2022 QUANT IFERO N - TB GOLD PLUS (CLIE NT INCUB ATED) quantiferon TB1 Ag value 0.01 IU/mL Not Available [facility] [address], [place], [address], 11/05/2022 08:26:59 11/03/19 23 11/02/2022 QUANT IFERO N - TB GOLD PLUS (CLIE NT INCUB ATED) quantiferon TB2 Ag value 0.00 IU/mL Not Available [facility] [address], [place], [address], 11/05/2022 08:26:59 11/03/19 23 11/02/2022 QUANT IFERO N - TB GOLD PLUS (CLIE NT INCUB ATED) quantiferon nil value 0.02 IU/mL Not Available [facility] [address], [place], [address], 11/05/2022 08:26:59 11/03/19 23 11/02/2022 QUANT IFERO N - TB GOLD PLUS (CLIE NT INCUB ATED) quantiferon mitogen value >10.00 IU/mL Not Available [facility] [address] [facility] [address], [place], [address], 11/05/2022 08:26:59 11/03/19 23 11/02/2022 QUANT IFERO N - TB GOLD PLUS (CLIE NT INCUB ATED) quantiferon- TB gold plus NEGATI VE negati ve normal No respo nse to M tuber culos is antig ens detec marco. Infec tion with M tuber culos is is unlik adrianne, but high risk indiv idual s shoul d be consi dered for addit ional testi ng (ATS/ IDSA/ CDC Clini alvarez Pract ice Guide lines , 2017) . The refer ence range is an Antig en minus Nil resul t of <0.35 IU/mL . The speci men recei claire for Quant iFERO N testi ng was incub ated by the order ing insti tutio n. Speci fic proce dures outli julius in our Direc tory of Servi carrington and in the packa ge inser t for the Quant iFERO N Gold (In Tube) test must be follo wed to enabl e for prope r stimu latio n of cells for the produ ction of inter feron gamma . Chemi lumin escen ce immun oassa y metho dolog y Not Available [facility] [address] [facility] [address], [place], [address], 11/05/2022 08:26:59 11/03/19 23 11/02/2022 urina lysis , dipst ick Color Yellow Not Available [facility], [address], 11/02/2022 10:19:24 11/03/19 23 11/02/2022 urina lysis , dipst ick Appearance Clear Not Available [facility] [address], [place], [address], 11/02/2022 10:19:24 11/03/19 23 11/02/2022 urina lysis , dipst ick Specific [place] 1.020 Not Available [facility] [address], [place], [address], 11/02/2022 10:19:24 11/03/19 23 11/02/2022 urina lysis , dipst ick pH 7.0 Not Available [facility] [address], [address], 11/02/2022 10:19:24 11/03/19 23 11/02/2022 urina lysis , dipst ick Protein 1+ Not Available [facility] [address], [address], 11/02/2022 10:19:24 11/03/19 23 11/02/2022 urina lysis , dipst ick Glucose Neg Not Available [facility] [address], [address], 11/02/2022 10:19:24 11/03/19 23 11/02/2022 urina lysis , dipst ick Ketone Neg Not Available [facility] [address], [address], 11/02/2022 10:19:24 11/03/19 23 11/02/2022 urina lysis , dipst ick Occult Blood Neg Not Available [facility] [address], [address], 11/02/2022 10:19:24 11/03/19 23 11/02/2022 urina lysis , dipst ick Urobilogen 0.2 Not Available [facility] [place] [address], [address], 11/02/2022 10:19:24 11/03/19 23 11/02/2022 urina lysis , dipst ick Bilirubin Neg Not Available [facility] [address], [address], 11/02/2022 10:19:24 11/03/19 23 11/02/2022 urina lysis , dipst ick Nitrite Neg Not Available [facility], [address], 11/02/2022 10:19:24 11/03/19 23 11/02/2022 urina lysis , dipst ick Leukocyte Esterase 1+ Not Available [facility] [address], [address], 11/02/2022 10:19:24 11/03/19 23 11/02/2022 heari ng scree mildred* Unknown Analyte normal Not Available [facility] [address], [address], 11/02/2022 10:18:38 11/03/19 23 11/02/2022 heari ng scree mildred* Unknown Analyte normal Not Available [facility] [address], [address], 11/02/2022 10:18:38 11/03/19 23 11/02/2022 heari ng scree mildred* Unknown Analyte normal Not Available [facility] [address], [address], 11/02/2022 10:18:38 11/03/19 23 11/02/2022 heari ng scree mildred* Unknown Analyte normal Not Available g_pe diatric s[address], [address], 11/02/2022 10:18:38 11/03/19 23 11/02/2022 heari ng scree mildred* Unknown Analyte normal Not Available g_pe diatric s[address], [address], 11/02/2022 10:18:38 11/03/19 23 11/02/2022 heari ng scree mildred* Unknown Analyte normal Not Available g_pe diatric s[address], [address], 11/02/2022 10:18:38 12/09/19 24 12/09/2023 urina lysis , dipst ick Unknown Analyte Trace Not Available [address], [address], 12/09/2023 10:48:08 12/09/19 24 12/09/2023 urina lysis , dipst ick Unknown Analyte Negati ve Not Available [place] [address], [address], 12/09/2023 10:48:08 12/09/19 24 12/09/2023 urina lysis , dipst ick Unknown Analyte 0.2 Not Available [address], [address], 12/09/2023 10:48:08 12/09/19 24 12/09/2023 urina lysis , dipst ick Unknown Analyte 30+ Not Available [address], [place], [address], 12/09/2023 10:48:08 12/09/19 24 12/09/2023 urina lysis , dipst ick Unknown Analyte 7.5 Not Available [facility] [address] [place], [address], 12/09/2023 10:48:08 12/09/19 24 12/09/2023 urina lysis , dipst ick Unknown Analyte Negati ve Not Available [facility] [address] [place], [address], 12/09/2023 10:48:08 12/09/19 24 12/09/2023 urina lysis , dipst ick Unknown Analyte 1.020 Not Available [facility]10 [facility] [address] [place], [address], 12/09/2023 10:48:08 12/09/19 24 12/09/2023 urina lysis , dipst ick Unknown Analyte Negati ve Not Available [facility] rt [facility] [address] [place], [address], 12/09/2023 10:48:08 12/09/19 24 12/09/2023 urina lysis , dipst ick Unknown Analyte Negati ve Not Available [facility] [address] [place], [address], 12/09/2023 10:48:08 12/09/19 24 12/09/2023 urina lysis , dipst ick Unknown Analyte Negati ve Not Available [facility] [address] [place], [address], 12/09/2023 10:48:08 12/09/19 24 12/09/2023 urina lysis , dipst ick Unknown Analyte Yellow Not Available [facility] [address] [place], [address], 12/09/2023 10:48:08 12/09/19 24 12/09/2023 urina lysis , dipst ick Unknown Analyte Clear Not Available [facility]10 84_nort _[address] [place], [address], 12/09/2023 10:48:08 12/09/19 24 12/09/2023 pregn gonzalez test, urine HCG (Ref. Range: Negative) negati ve Not Available [facility] rt [address] [place], [address], 12/09/2023 10:47:26 12/14/19 22 12/13/2021 US, pelvi s No observ ation record ed. [email or web address] [facility] [address] [place], [address], 12/13/2021 14:03:55 01/03/20 22 01/02/2022 US, pelvi s No observ ation record ed. [email or web address] [facility] [address] [place], [address], 01/02/2022 10:18:44 Result Notes None recorded. Problems Name Problem SNOMED Code Status Onset Date Resolution Date Notes Provider Name and Address Organization Details Recorded Time Multiple benign melanocy tic nevi 875646152 Active 2021 Cassia Mora MD [address] [facility],[address], [place], [address], [facility] 09:27:05 Primary focal hyperhid rosis of axilla [id number] 9617953 Active 2021 Cassia Mora MD [address] [place] [address],[address], [place], [address], [facility] 2 09:27:07 Bonita is cutis 08902832 Active 2017 Descript ion: XEROSIS CUTIS Not Available [facility] 11:16:35 [place] 084123632 Active 2017 Not Available [facility] 11:16:35 Keratosi s pilaris 5728508 Active 2017 Not Available [facility] 11:16:35 Acute lymphade nitis of face, head and neck 012397764 Completed 201805/12/2019 Not Available [facility] 11:16:35 Impetigo 09526447 Completed 201805/12/2019 Descript ion: IMPETIGO , UNSPECIF IED Not Available [facility] 11:16:35 Acute pharyngi tis 343025507 Completed 201311/09/2013 Descript ion: PHARYNGI TIS, ACUTE Not Available [facility] 11:16:35 Problem Notes None recorded. Procedures Surgical History Date Name Laterality Status Provider Name and Address Organization Details Recorded Time 2 IUD Insertion completed Danette Schmid [facility] 08/15/2021 11:30:28 Imaging Results Imaging Date Name Status LastModified by Organiz ation Details LastModified Time 12/13/2021 US, pelvis completed [facility] [address] [place], [address], 12/13/2021 14:03:55 01/02/2022 US, pelvis completed [facility] [address] [place], [address], 01/02/2022 10:18:44 Procedure Notes None recorded. Medical Equipment None Reported. Allergies No known drug allergies Medications Name Sig Start Date Stop Date Status Note LastModified by Organization Details LastModified Time Mirena 21 mcg/24 hr (up to 8 years) 52 mg intrauterin e device Take 1 device by intrauter ine route. 2021 active Not Available Not Available Not Avai lable sertraline 100 mg tablet active Not Available Not Available Not Available Macrobid 100 mg capsule Take 1 capsule every 12 hours by oral route. 2023 active Not Available Not Available Not Avai lable bupropion HCl 75 mg tablet active Not Available Not Available Not Available sertraline 50 mg tablet active Not Available Not Available Not Available bupropion HCl XL 150 mg 24 hr tablet, extended release 10/30 completed Not Available Not Available Not Available aripiprazol e 2 mg tablet active Not Available Not Available Not Available tranexamic acid 650 mg tablet 10/30 completed Not Available Not Available Not Available Qbrexza 2.4 % towelette active Not Available Not Available Not Available Vitals Date Recorded Body height Systolic blood pressure Diastolic blood pressure Provider Name and Address Organization Details Last Updated DateTime 01/02/2022 171.45 cm 100 mm[Hg] 60 mm[Hg] Madelaine Stra[facility] 01/02/2022 09:54:26 Date Recorded Body height Body mass index (BMI) Body mass index (BMI) Percentile per age and sex Body weight Systolic blood pressure Diastolic blood pressure Provider Name and Address Organization Details Last Updated DateTime 3 173.36 cm 21.1 kg/m2 44 % 35475.6 3 g 104 mm[Hg] 62 mm[Hg] Mark amos [facility] 3 10:31:41 Date Recorded Body height Body mass index (BMI) Percentile per age and sex Body mass index (BMI) Body weight Systolic blood pressure Diastolic blood pressure Provider Name and Address Organization Details Last Updated DateTime 4 173.36 cm 50 % 21.7 kg/m2 66509.3 g 120 mm[Hg] 62 mm[Hg] Hannah Russell [facility] 4 13:31:15 Date Recorded Body height Oxygen saturation Oxygen saturation in Arterial blood by Pulse oximetry Respiratory rate Heart rate Body temperature Systolic blood pressure Diastolic blood pressure Provider Name and Address Organization Details Last Updated DateTime 4 173.36 cm 98 % 98 % 16 /min 62 /min 97.8 [degF] 116 mm[Hg] 60 mm[Hg] Micheal Isabelrafita [facility] 4 10:42:36 Social History Question Answer Notes LastModified by Organizat ion Details LastModified Time Tobacco Smoking Status Never Smoker Not Available [facility] 03/15/2021 19:20:29 What Is Your Level Of Alcohol Consumption? None Information not available 08/09/2021 How Many Times Per Week Do You Exercise? 5-7 Times Per Week Information not available 08/09/2021 What Grade Are You In? [id number] [employer] Going To judo In The Fall Information not available 08/09/2021 What Was The Date Of Your Most Recent Tobacco Screening? 08/09/2021 Information not available 08/09/2021 How Many Children Do You Have? 0 Information not available 08/09/2021 What Is Your Relationship Status? Single Information not available 08/09/2021 Are You Sexually Active? No Information not available 08/09/2021 What Types Of Sporting Activities Do You Participate In? Track, Runs Information not available 08/09/2021 Has Tobacco Cessation Counseling Been Provided? No [email or web address] Information not available 03/15/2021 Are You Currently In School? Yes Information not available 08/09/2021 Sex: Unknown Functional Status Question Answer Note LastModified by Organization D etails LastModified Time What is your exercise level? Moderate Information not available 08/09/2021 Mental Status None recorded. Family History Relationship Description Onset Age of this Age Resolved Age Notes LastModified by Organization Details LastModified Time Brother Ulcerative colitis Not available 2021 13:17:16 Brother Hypothyroidi sm Not available 2021 13:17:32 Notes:General Comments: broshari her-UC Mom has hx of bcc paternal grandfather has hx of melanoma Medical History No medical history recorded. Gynecological History Statement/Question Response STIs/STDs N HPV Vaccine Y Age at Menarche 12 Date of LMP 10/13/2023 Sexually Active? Y Obstetrics History GPAL:G 0 P 0 0 0 0 Type Value Living 0 Total 0 Immunizations Vaccine Type Date Status Note Provider Nam e and Address Organization Details Recorded Time Influenza, MDCK, quadrivalent, PF 2 completed Hannah Russell null, [facility] 10/31/2023 13:32:06 Influenza, MDCK, quadrivalent, PF 3 completed Hannah Russell null, [facility] 10/31/2023 13:32:16 meningococcal B, OMV 2 completed Vikki Garcia MD [address] [facility],[address], [place], [address], [facility] 10/24/2021 13:35:25 meningococcal B, OMV 2 completed Vikki Garcia MD [address] [facility],[address], [place], [address], [facility] 11/28/2021 15:35:52 Tdap 5 completed Madelaine Strauss null, [facility] 12/13/2021 12:33:02 polio, unspecified formulation 4 completed Charito Noe null, [facility] 07/26/2021 09:23:20 polio, unspecified formulation 5 completed Charito Noe null, [facility] 07/26/2021 09:23:43 polio, unspecified formulation 9 completed Charito Noe null, [facility] 07/26/2021 09:23:51 MMR 5 completed Charito Noe null, [facility] 07/26/2021 09:24:09 MMR 9 completed Charito Noe null, [facility] 07/26/2021 09:24:17 Hib, unspecified formulation 4 completed Charito Noe null, [facility] 07/26/2021 09:24:35 Hib, unspecified formulation 4 completed Charito Noe null, [facility] 07/26/2021 09:24:44 Hib, unspecified formulation 4 completed Not Available [facility] 04/24/2022 00:57:32 [facility], unspecified formulation [facility] 09:25:02 [facility]icella 5 [facility] 09:26:24 [facility]icella 0 [facility] 12:33:02 Pneumococcal conjugate PCV 13 4 completed Not Available [facility] 04/24/2022 00:57:31 Pneumococcal conjugate PCV 13 4 completed Not Available [facility] 04/24/2022 00:57:32 Pneumococcal conjugate PCV 13 4 completed Not Available [facility] 04/24/2022 00:57:32 Pneumococcal conjugate PCV 13 5 completed Not Available [facility] 04/24/2022 00:57:32 meningococcal ACWY, unspecified formulation 5 completed Not Available [facility] 04/24/2022 00:57:31 meningococcal ACWY, unspecified formulation 0 completed Not Available [facility] 04/24/2022 00:57:31 COVID-19, mRNA, LNP-S, PF, 30 mcg/0.3 mL dose 1 [facility] 12:33:02 COVID-19, mRNA, LNP-S, PF, 30 mcg/0.3 mL dose 1 [facility] 12:33:02 Hep A, unspecified formulation 8 [facility] 12:33:02 pneumococcal, unspecified formulation 4 [facility]13[facility] 12:33:02 Influenza, split virus, quadrivalent, PF 9 completed Madelaine Strauss null, [facility] 12/13/2021 12:33:02 Hep B, unspecified formulation 5 completed Madelaine Strauss null, [facility] 12/13/2021 12:33:02 HPV9 5 [facility] 12:33:02 HPV9 6 completed Madelaine Strauss null, [facility] 12/13/2021 12:33:02 Influenza, split virus, quadrivalent, PF 1 [facility] 12:33:02 Hib, unspecified formulation 5 [facility] 12:33:02 Influenza, live, trivalent, intranasal 2 completed [facility] 12:33:02 Hep A, ped/adol, 2 dose 0 completed [facility] 12:33:02 Hep B, unspecified formulation 5 [facility] 12:33:02 pneumococcal, unspecified formulation 5 completed [facility] 12:33:02 DTaP, unspecified formulation 4 completed [facility] 12:33:02 Meningococcal MCV4O 0 completed Madelaine pérez, [facility] 12/13/2021 12:33:02 Influenza, split virus, quadrivalent, PF 7 [facility] 12:33:02 Influenza, split virus, quadrivalent, PF 0 [facility]13[facility] 12:33:02 DTaP, unspecified formulation 9 completed Madelaine Strauss [facility] 12/13/2021 12:33:02 DTaP, unspecified formulation 5 [facility] 12:33:02 meningococcal MCV4, unspecified formulation 5 [facility]13[facility] 12:33:02 Novel Smuargeqd-[id number], all formulations 0 [facility] 12:33:02 pneumococcal, unspecified formulation 4 completed Madelaine Strauss [facility] 12/13/2021 12:33:02 Hep B, unspecified formulation 4 completed Madelaine Strauss [facility] 12/13/2021 12:33:02 pneumococcal, unspecified formulation 4 completed Madelaine Strauss [facility] 12/13/2021 12:33:02 Influenza, split virus, quadrivalent, PF 6 completed Madelaine Strauss [facility] 12/13/2021 12:33:02 COVID-19, mRNA, LNP-S, PF, 30 mcg/0.3 mL dose 1 [facility] 12:33:02 DTaP, unspecified formulation 4 [facility] 12:33:02 Influenza, live, quadrivalent, intranasal 4 [facility] 12:33:02 HPV9 5 [facility]13[facility]21 12:33:02 polio, unspecified formulation 4 completed Madelaine pérez, [facility] 12/13/2021 12:33:02 Influenza, split virus, quadrivalent, PF 8 completed Madelaine pérez [facility] 12/13/2021 12:33:02 Influenza, split virus, quadrivalent, PF 5 completed Madelaine pérez [facility] 12/13/2021 12:33:02 DTaP, unspecified formulation 4 completed Madelaine pérez [facility] 12/13/2021 12:33:02 Past Encounters Encounter ID Performer Location Encounter Start Date Encounter Closed Date Diagnosis/Indication Diagnosis SNOMED-CT Code Diagnosis ICD10 Code Diagnosis Note [id number] MD TIA Moraes_Mikie garcia_73_ [facility] [address] [place] [address] 07/20/2021 10:32:48 07/20/2021 13:17:01 Contraception care management 726720804 Z30.9 [id number] Danette WEBER_OBGYN _[address] [address] 08/09/2021 13:00:34 08/09/2021 13:34:28 Gynecologic examination 13078404 Z01.419 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 Pt understand s the importance of screening with pap smears for cervical precancers and cancer. Menorrhagia 384808401 N9 2.0 Pt will RTO for Mirena IUD insertion [id number] Danette WEBER_OBGYN _[address] [address] 08/15/2021 10:38:20 08/15/2021 11:31:29 Insertion of intrauterine contraceptive device 05247696 Z30.430 The patient will call for severe cramping, fever, abnormal bleeding, abnormal discharge or severe pelvic pain develop. The pt may take motrin or tylenol as directed for cramps. Pt will use condoms for 2 wks RTO 4 weeks for sono and exam [id number] Danette WEBER_OBGYN _[address]_[place] [address] [place] [address] 09/12/2021 10:28:47 09/12/2021 11:14:17 IUD check 241846286 Z30.431 Pt is doing well with IUD. WIll RtO 1 year for annual exam. [id number] Vikki Garcia MD [facility]_Pedjohan trics_73_ [address] [address] 10/24/2021 13:16:12 10/24/2021 16:01:51 Well child visit 316913949 Z00.129 [id number] MD TIA Moraes_Mikie trics_73_ [address] [address] 11/28/2021 15:28:29 11/29/2021 14:59:55 Vaccination given 025360605 Z23 Chest wall pain 37003535 6 R07.89 probable costochond ritis vs muscle strain [id number] Danette Sharmaine G_OBGYN _[address] [address] [place] [address] 12/13/2021 11:21:32 12/13/2021 13:58:09 Acute pelvic pain 264406138 R10.2 most likely secondary to ovarian cyst. Continue taking celebrex as needed for pain Cyst of right ovary 1223 852473 6772770 N83.201 Pt previously had cyst 3.5 cm in September. Uncertain if this cyst is a new one or enlargemen t of the one in september. Pt will RTO in 4 weeks for repeat sonogram to check for growth or resolution . [id number] Danette Sharmaine G_OBGYN _[address] [address] [place] [address] 01/02/2022 09:45:50 01/02/2022 10:17:48 Cyst of right ovary [id number] 4753648 N83.201 Cysts appear to be funcional. reassured pt. [id number] Cassia Mora MD [facility]_Dermdavid tology_[address] [address] 04/25/2022 09:07:03 04/26/2022 08:56:42 Primary focal hyperhidrosis of axilla [id number] 0456314 L74.510 Reviewed diagnosist reatment options discussed Will do trial of qbrexza wipes nightly for the next monthSED and reviewed importance of washing hands after useif no improvemen t consider oral glyocpyrro late Multiple b enign melanocytic nevi 224245689 D22.9 No concerning lesions on exam Regarding nevi, we reviewed concerning signs such as asymmetry, border irregulari ty, color change, growth in diameter or elevation and discussed prompt re-evaluat ion for changes including but not limited to size, shape, or color. Sun protection was reviewed in detail, including mid-day sun avoidance, seeking half-way in the shade, covering with hat/protec tive clothing, and sunscreen use. We encouraged re-evaluat ion of the skin at home on a monthly basis at home and f/u yearly [id number] Jose Granger DO [facility]_Pedia trics_73_ [address] [address] 11/02/2022 10:12:43 11/02/2022 11:50:12 Adult health examination 829627757 Z00.00 discussed all anticipato ry guidance Depression screening 171 263271 Z13.31 [id number] Jessica Morton MD G_OBGYN _73_[address] [place] [address] 10/31/2023 13:12:01 10/31/2023 16:29:55 Gynecologic examination 18790598 Z01.419 Pt. is a well 18 year old with a normal ROS and PE. Self breast exam was instructed gc/ct declined Pelvic mireya or dysfunction 359399651 M62.9 pfdL>Rpelv ic floor PT Surveillan ce of intrauterine device contraception done [id number] 41578 Z30.431 mirena in situdoing well [id number] Eduard marr MD [facility]_[address]_ [place]_[address] [address] 12/09/2023 10:02:03 12/09/2023 11:31:18 Acute urinary tract infection 542140461 N39.0 1) UTI Urinary symptoms x 7 days. Exam: no CVA tenderness , no suprapubic tenderness . Urinedip was positive . Urine HCG negative Advised macrobid urine culture sent . Handout reviewed Warning symptoms like fever, abdominal pain, chills reviewed Patient verbalized an understand ing of the treatment plan. All patient's questions answered. Patient instructed and verbalized an understand ing of instructio ns to follow up sooner if persistent and certainly urgently if worsening symptoms or pain. All questions answered and concerns addressed. Health Concerns Section Related Observation LastModified by Organization Detai ls LastModified Time None Recorded Concern Status LastModified by Organization Details LastModified Time None Recorded Advance Directives Directive None Recorded Payers Encounter Date Sequence Insurance Name Policy Number Policy Conner Covered Member ID Conner Member ID Guarantor Name 01/02/2022 1 [facility] Alfonzo [id number] Joanne Alfonzo 04/25/2022 1 [facility] Alfonzo [id number] Joanne Alfonzo 11/02/2022 1 [facility] (PPO) [id number] Joanne G Alfonzo [id number] Joanne Alfonzo 10/31/2023 1 [facility] (PP[employer]) [id number] Joanne G Alfonzo [id number] Joanne Alfonzo 12/09/2023 1 [facility] - [employer] (PP[employer]) [id number] Joanne G Alfonzo [id number] Joanne Alfonzo Notes Date Note Type Note Provider Name and Address Organization Details Recorded Time 01/02/2022 text/html 15 YO P0000 complaining of pelvic pain that began the day prior to menses. Pain was intense for an hour and has dissipated since then. Today the pain is present but not constant.The pt is not sexually active. Pt took celebrex for pain which helped.LMP 12/11/21 BCM_ Mirena IUD placed 08/15/21 for heavy periodsTVS may - 3.5 cm right ovarian cystSono 12/13/21 showed a 6 cm simple Right ovarian cyst. IUD in proper place in the endometrial canal. Pt is here for follow up sonogram and examPt is no longer having pain.TVS today- IUD in proper place. Right resolving simple cyst now 1.9 cm. New CL cyst 4.2 cm. Danette pérez, [facility] 01/02/2022 10:17:43 04/25/2022 text/html FMH:MOther and M GF has hx of bcc/mmNew Patient, but has seen JOSUE Wray 12/19/2017PMH:noNew or Cancer concern:-hyperhidros is excessive sweating underarms x yrshas tried many deodorants and otc treatments without benefitno particular new or changing moles of concernHx of tanning beds:noHX of blistering Sunburn:no Cassia Mora MD [address], [place], [address], [facility] 04/25/2022 09:30:15 11/02/2022 text/html no general concerns Jose Granger DO [address] [facility],[address], [place], [address], [facility] 11/02/2022 11:50:08 10/31/2023 text/html Annual GYNReport ed bypatient.Urinary symptoms:No hematuria; No incontinence Vulva:No genital lesion Vagina:Normal vaginal discharge Breast:No breast pain; No breast lump; No nipple discharge Sexual complaints:No sexual complaints; No pain during intercourse; Normal libido Menopausal Symptoms:No menopausal symptoms; Normal vaginal lubrication Psychological symptoms:No depression; No anxiety; No PMDD Patient presents for annual exam. Medical/Surgical/Fam mami/Social/Pbx Wire Chief/Medic ations/Allergies history reviewed. Periods: {{ regular irregular * none}} mirena Breast issues: {{ no* pain lump}} Medication cost concerns: {{ no* yes n/a}} several months of pelvic pain sp sexhas clicking hips from runninghas seen ortho before Jessica Morton MD [address], [place], [address], [facility] 10/31/2023 16:29:51 12/09/2023 text/html note 18 yo female patient presents with c/o 7 days urinary frequency and vesical tenesmusPatient denies dysuria, nausea, chills, vomiting, fever, flank pain, back pain/myalgia, blood in urine, vaginal irritation/pruritus or vaginal discharge.Patient is sexually active with both.last intercourse last 2 mos No hx of STD's Eduard Marquis MD [address] [place] [address],[address], [place], [address], [facility] 12/09/2023 15:04:50 OBGyn Episode No OBEpisode recorded.
--- OUTSIDE RECORDS SUMMARY | 2024-07-18 02:16 | XMS_ITS | Clinical Summary ---
Author Organization [facility] Address [address] [place] [address] Care Team Providers Care Rheumatology Nurse Name Role Phone Unavailable Primary Care Provider Unavailabl e Allergies No known active allergies Medications ARIPiprazole (ABILIFY) 2 MG tablet Active buPROPion (WELLBUTRIN) 75 MG tablet Active sertraline (ZOLOFT) 100 MG tablet Active sertraline (ZOLOFT) 50 MG tablet Active Immunizations Immunization Administration Dates Next Due DTaP, Unspecified 12/15/2008, 5,03/04/2004,01/04,2003 H1N1 All Forms 09/15/2009 HPV 06/03/2015,12/28/2014,11/23/2014 Hep A, 2 Dose 09/15/2009 Hep A, Unspecified 09/06/2007 Hep B, Unspecified 02/20/2005,05/19/2004, 004 HiB 03/02/2005, 4,03/02/2004,01/04,2003 Influenza LAIV (Nasal) 01/26/2012 Influenza, Inj. Quadrivalent , Preservative Free 04/03/2021,01/30/2020,03/01/2019,03/08,02/24/2017,02/22/2016,02/18/2015 Influenza, Quadrivalent 02/23/2014 MMR 12/15/2008,2004 Meningococcal B, Omv 11/28/2021,10/24/2021 Meningococcal Conjugate 12/05/2019 Meningococcal MCV4, Unspecified 08/26/2014 Meningococcal, Unspecified 12/05/2019,08/26/2014 Pfizer Sars-cov-2 Vaccinatio n (12+ yrs) 05/01/2021,09/10/2020,08/20/2020 Pneumococcal Conjugate 13-Valent 005,03/04/2004,01/05/2004,10/25 Pneumococcal, Unspecified 2004,,01/05/2004,10/25 Polio, Unspecified 12/15/2008, 5,01/03/2004,10/25 Tdap 08/26/2014 Varicella 09/15/2009,2004 Family History Medical History Relation Name Comments No Known Problems Father Relation Name Status Comments Father Alive Social History Tobacco Use Types Packs/Day Years Used Date Smoking Tobacco: Never Smokeless Tobacco: Never Alcohol Use Standard Drinks/Week Comments Not Currently 2 (1 standard drink = 0.6 oz pur e alcohol) Health Literacy Answer Date Recorded How often do you need to hav e someone help you when you read instructions, pamphlets, or other written material from your doctor or pharmacy? Never 04/26/2023 Comments Unknown Sex and Gender Information Value Date Recorded Sex Assigned at Female 04/26/2023 12:54 PM EST Legal Sex Female 10:46 AM EST Gender Identity Female 04/26/2023 12:54 PM EST Sexual Orientation Bisexual 04/26/2023 12 :54 PM EST Last Filed Vital Signs Vital Sign Reading Time Taken Comments Blood Pressure - - Pulse - - Temperature - - Respiratory Rate - - Oxygen Saturation - - Inhaled Oxygen Concentration - - Weight 63.5 kg (139 lb 15.9 oz) 05/15/2023 9:01 AM EST Height 175.3 cm (5' 9.02) 05/15/2023 9:01 AM ES T Body Mass Index 20.66 05/15/2023 9:01 AM EST Plan of Treatment Health Maintenance Due Date Last Done Comments COVID-19 Vaccine (2023- 5 season) 2024 05/01/2021, 09/10/2020, 08/20/2020 INFLUENZA VACCINE 01/13/2024 04/03/2021, , 03/01/2019, Additional history exists Insurance CIGNA CIGNA CIGNA CIGNA CIGNA CIGNA CIGNA CIGNA CIGNA CIGNA CIGNA CIGNA CIGNA CIGNA CIGNA CIGNA CIGNA CIGNA CIGNA CIGNA CIGNA CIGNA CIGNA CIGNA CIGNA CIGNA CIGNA CIGNA CIGNA CIGNA CIGNA CIGNA CIGNA CIGNA CIGNA CIGNA CIGNA CIGNA CIGNA CIGNA CIGNA CIGNA CIGNA CIGNA CIGNA CIGNA CIGNA CIGNA CIGNA CIGNA CIGNA CIGNA CIGNA CIGNA CIGNA CIGNA CIGNA CIGNA CIGNA CIGNA CIGNA CIGNA CIGNA CIGNA CIGNA CIGNA CIGNA CIGNA CIGNA CIGNA CIGNA CIGNA CIGNA CIGNA CIGNA CIGNA CIGNA CIGNA CIGNA CIGNA CIGNA CIGNA CIGNA CIGNA CIGNA CIGNA CIGNA CIGNA CIGNA CIGNA CIGNA CIGNA CIGNA CIGNA CIGNA CIGNA CIGNA CIGNA CIGNA CIGNA CIGNA CIGNA CIGNA CIGNA CIGNA CIGNA CIGNA CIGNA CIGNA CIGNA CIGNA CIGNA CIGNA CIGNA CIGNA CIGNA CIGNA CIGNA CIGNA CIGNA CIGNA CIGNA CIGNA CIGNA CIGNA CIGNA CIGNA CIGNA CIGNA CIGNA CIGNA CIGNA CIGNA CIGNA CIGNA CIGNA CIGNA CIGNA CIGNA CIGNA CIGNA CIGNA CIGNA CIGNA CIGNA CIGNA CIGNA CIGNA CIGNA CIGNA CIGNA CIGNA CIGNA CIGNA CIGNA CIGNA CIGNA CIGNA CIGNA CIGNA CIGNA CIGNA CIGNA CIGNA CIGNA CIGNA CIGNA CIGNA CIGNA CIGNA CIGNA CIGNA CIGNA CIGNA CIGNA CIGNA CIGNA CIGNA CIGNA CIGNA CIGNA CIGNA CIGNA CIGNA CIGNA CIGNA CIGNA CIGNA CIGNA CIGNA
--- OUTSIDE RECORDS SUMMARY | 2024-07-18 02:16 | XMS_ITS | Clinical Summary ---
Author Organization [facility], [facility], and [facility] Address [address] [place] [address] Care Team Providers Care Core Driller Name Role Phone Beltran Correa MD Unavailable [phone] Vikki Garcia MD Unavailable [phone] Suhail Morton MD Unavailable [phone] Vikki Garcia MD Primary Care Provider [phone] Allergies No known active allergies Medications sertraline 100 MG Tablet 0 Active Cholecalciferol 350 MCG (33677 UT) WaferIndication s:Vitamin Deficiency Take 1 Wafer by mouth Every Sunday. Indications: Vitamin Deficiency 8 Wafer 1 2 Active celecoxib (CELEBREX) 100 MG CapsuleIndicati ons:Pain Take 1 capsule (100 mg) by mouth 2 Times a Day. 60 capsule 1 4 Active FLUoxetine 10 MG CapsuleIndicati ons:Depression Take 1 capsule (10 mg) by mouth Daily. Active aripiprazole 2 MG TabletIndicatio ns:Agitation Take 1 tablet (2 mg) by mouth. Active Active Problems Problem Noted Date Diagnosed Date Thoracic outlet syndrome 01/17/2024 Radicular pain in right arm 12/20/2023 Upper back pain 12/20/2023 Neck pain 12/20/2023 Encounters Date Type Department Care Team Description 05/15/2024 12:00 PM EST Office Visit [facility] - [address], [address] [place] [address] Suhail Morton MD 04/29/2024 2:15 PM EST Office Visit [facility] [address] [address] Suhail Morton MD from Last 3 Months Social History Tobacco Use Types Packs/Day Years Used Date Smoking Tobacco: Never Smokeless Tobacco: Never Tobacco Cessation:Counseling Given: Not Answered Alcohol Use Standard Drinks/Week Comments Never 0 (1 standard drink = 0.6 oz pur e alcohol) Comments No Sex and Gender Information Value Date Recorded Sex Assigned at Not on file Legal Sex Female 2:57 AM EST Gender Identity Not on file Sexual Orientation Not on file Last Filed Vital Signs Vital Sign Reading Time Taken Comments Blood Pressure 105/48 01/23/2024 2:00 PM EDT Pulse 85 01/23/2024 2:41 PM EDT Temperature 36.6 C (97.8 F) 01/23/2024 11:15 AM EDT Respiratory Rate 21 01/23/2024 2:41 PM EDT Oxygen Saturation 97% 01/23/2024 2:41 PM EDT Inhaled Oxygen Concentration - - Weight 65.8 kg (145 lb) 01/23/2024 6:22 AM EDT Height 175.3 cm (5' 9.02) 01/23/2024 6:22 AM ED T Body Mass Index 21.4 01/23/2024 6:22 AM EDT Plan of Treatment Health Maintenance Due Date Last Done Comments Chlamydia/GC Screening (ANNUAL) 08/17/2013 HIV SCREENING 08/17/2016 Hepatitis C screening 08/17/2021 COVID-19 Vaccine (2023-2 5 season) 2024 05/01/2021, 09/10/2020, 08/20/2020 IMM: Influenza (#1) 2024 05/11/2023, 05/01/2022, 04/03/2021, Additional history exists IMM: DTap/ Tdap/ Td (7 - Td or Tdap) 08/26/2024 08/26/2014, 12/15/2008, 03/02/2005, Additional history exists IMM: RSV (1 - 1-dose 75+ series) 08/17/2078 Pneumococcal Vaccine: Pediat rics (0 to 5 Years) and At-Risk Patients (6 to 49 Years) Completed 2004, 03/04/2004, 01/05/2004, Additional history exists IMM: HPV Completed 06/03/2015, 12/12, 11/23/2014 IMM: Meningococcal B Completed 11/28/2021, 10/25/19 22 Insurance [facility] Advance Directives * Default Full Code (Latest Code Status on File) Date Activated Date Inactivated Comments 01/23/2024 7:14 AM 01/23/2024 8:00 PM Care Teams Core Driller Relationship Specialty Start Date End Date Vikki Garcia MD [address] [place] [id number] PCP - PCP Assigned by Plan 08/08/21 Vikki Garcia MD [address] [place] [address] PCP - General 01/23/24 Beltran Correa MD [address] [place] [address] [address] [place] [address] Surgery - Orthopedic 12/19/19 Suhail Morton MD [address] [place] [address] [address] [place] [address] Surgery - Vascular 01/19/24
--- OUTSIDE RECORDS SUMMARY | 2024-07-18 02:16 | XMS_ITS ---
Author Organization [facility] Address [address] [place] [address] Care Team Providers Care Tile Classifier Name Role Phone PCP, Does Not Have a Primary Care Provider Unava Jl Mcclendon Unavailable [phone] REASON FOR VISIT CC/RESULTS SOCIAL HISTORY Sex Assigned At : Social History Observation Description Sex Assigned At Female Encounters Encounter Location Date Provider Diagnosis [address] [address] 01/21/2024 Jl Askew PLAN OF TREATMENT No Information
--- OUTSIDE RECORDS SUMMARY | 2024-07-18 02:16 | XMS_ITS | Patient Health Record ---
Author Organization [facility] Address [address] [place] [address] Care Team Providers Care Machine Adjuster Leader Case Trim Name Role Phone PCP, Does Not Have a Primary Care Provider Jl Rose Unavailable [phone] Hari Durand Unavailable [phone] ALLERGIES No Known Allergies RESULTS Component Value Reference Range Notes HEP B Surface Antigen - NSLI J Reviewed date:01/21/2024 05:23:35 PM Interpretation:Negative Performing Lab:[facility], [address] [place] [address], Director - [facility] Fire Extinguisher Sprinkler Inspector: Shimon Velez MD Notes/Report: Hep B Surface Ag Nonreactive Nonreactive A = Abnormal, H = High, HH = Critical High, L = Low, LL = Critical Low CTNGORAL Reviewed date:01/21/2024 05:23:30 PM Interpretation:Negative Performing Lab:[facility], [address] [place] [address], Director - [facility] Fire Extinguisher Sprinkler Inspector: Shimon Velez MD Notes/Report: Source Oral Oral/Throat Testing on oral and throat specimens has not been approved by the US Food and Drug Administration (FDA). Performance characteristics of this assay for this assay in oral and throat specimens have been determined by [employer] and approved by the [facility]. The clinical significance of results should be considered in conjunction with the overall clinical presentation of the patient. Result is not intended to be used as the sole means for clinical diagnosis or patient management decisions. Chlamydia Amplification Result Not Detected Not Detected The [employer] Aptima Combo2 assay on [employer] system screens for the presence of Chlamydia trachomatis rRNA using molder machine tender mediated amplification. A Not Detected result does [...] Amplification Result Not Detected Not Detected The [employer] Aptima Combo2 assay on [employer] system screens for the presence of Neisseria gonorrhoeae rRNA using molder machine tender mediated amplification. A Not Detected result does [...] SLIJ Reviewed date:01/21/2024 05:23:42 PM Interpretation:Negative Performing Lab:[facility], [address] [place] [address], Director - [facility] Director: Shimon Velez MD Notes/Report: HIV 1,2 AG/AB by CMIA Nonreactive Nonreactive Nonreactive: HIV-1 p24 antigen and HIV-1/HIV-2 antibodies were not detected. Nonreactive results may be due to antigen and/or antibody levels that are below the limit of detection of this assay. Reactive: Presumptive evidence of HIV-1 p24 antigen and/or HIV-1/HIV-2 antibodies. This is a preliminary result. Further confirmatory testing according to the CDC/[facility] HIV testing algorithm will follow, [...] NSLIJ Reviewed date:01/21/2024 05:23:45 PM Interpretation:Negative Performing Lab:[facility], [address] [place] [address], Director - [facility] Director: Shimon Velez MD Notes/Report: Treponema Pallidum Ab [...] VAGCTNG Reviewed date:01/21/2024 05:23:52 PM Interpretation:Negative Performing Lab:[facility], [address] [place] [address], Director - [facility] Fire Extinguisher Sprinkler Inspector: Shimon Velez MD Notes/Report: Bacterial vaginosis Not Detected Not Detected Monica species Not Detected Not Detected Monica glabrata Not Detected Not Detected Trichomonas vaginalis Not Detected Not Detected The [place] ginitis Panel by NAAT assay utilizes molder machine tender medicated amplification (TMA) for the detection of [...] Amplification Result Not Detected Not Detected The [employer] Aptima Combo2 assay on [employer] system screens for the presence of Chlamydia trachomatis rRNA using molder machine tender mediated amplification. A Not Detected result does [...] Amplification Result Not Detected Not Detected The [employer] Aptima Combo2 assay on [employer] system screens for the presence of Neisseria gonorrhoeae rRNA using molder machine tender mediated amplification. A Not Detected result does [...] NSLIJ Reviewed date:01/21/2024 05:23:38 PM Interpretation:Negative Performing Lab:[facility], [address] [place] [address], Director - [facility] Fire Extinguisher Sprinkler Inspector: Shimon Velez MD Notes/Report: HCV S/CO Ratio [...] PCR Reviewed date:01/21/2024 05:23:49 PM Interpretation:Negative Performing Lab:[facility], [address] [place] [address], Director - [facility] Fire Extinguisher Sprinkler Inspector: Shimon Velez MD Notes/Report: HSV1/2 VZV PCR [...] NSLIJ Reviewed date:01/19/2024 03:34:03 PM Interpretation:Negative Performing Lab:[facility], [address] [place] [address], Director - [facility] Fire Extinguisher Sprinkler Inspector: Shimon Velez MD Notes/Report: Serum Negative Negative RESULT SPREG RES NEG SPREGQUANT <1 A = Abnormal, H = High, HH = Critical High, L = Low, LL = Critical Low REASON FOR REFERRAL No Information MEDICATIONS Medication SIG (Take, Route, Frequency, Duration) Notes Start Date End Date Status Zoloft Active Wellbutrin Active PROzac Active SOCIAL HISTORY Tobacco Use: Social History Observation Description Date Details (start date - stop date) Never Smoker NA - NA Sex Assigned At : Social History Observation Description Sex Assigned At Female Tobacco Use/Smoking Question Answer Notes You are a nonsmoker VITAL SIGNS Heart Rate 84 /min 01/18/2024 Temperature 98.4 degrees Fahrenheit 01/18/2024 Respiratory Rate 17 /min 01/18/2024 Oximetry 98 % 01/18/2024 Blood pressure diastolic 75 mm Hg 01/18/2024 Height 5'9in in 01/18/2024 Blood pressure systolic 127 mm Hg 01/18/2024 Weight 145 lbs 01/18/2024 BMI 21.41 kg/m2 01/18/2024 Encounters Encounter Location Date Provider Diagnosis [address] [address] 01/18/2024 Hari Durand Sexually transmitted disease exposure Z20.[address] [address] 01/21/2024 Jl Askew ASSESSMENTS Encounter Date Diagnosis Assessment Notes Treatment Notes Treatment Clinical Notes 01/18/2024 Sexually transmitted disease exposure (ICD-10 - Z20.2) PLAN OF TREATMENT No Information Insurance Providers Payer Name Payer Address Payer Phone Subscriber Number Group Number Insured Name Patient Relationship to Insured Coverage Start Date Coverage End Date [employer] [address] [place], [place] [address] [id number] FRANCI LAUREN Self - patient is the insured MEDICAL (GENERAL) HISTORY Medical History History ICD Code OCD
== END 2024-07-18 02:26 | disposition home or self-care (01) ==
PROVIDERS: Emergency Provider Internal Medicine; PCP Family Medicine
DX: R11.2 Nausea with vomiting, unspecified (principal)
CPT/HCPCS: 36415; 80053; 81001; 83690; 84703; 85025; 96374; 99283; J2405; J7030

== ENCOUNTER 2024-07-22 19:13 | Outpatient (CLI) | payer OTHER, SELFPAY | END 2024-07-22 19:14 | disposition home or self-care (01) | LOC: MRI 19:14 | PROVIDERS: Visit Provider Family Medicine | DX: R51.9 Headache, unspecified (principal) | CPT/HCPCS: 70551 ==

== ENCOUNTER 2024-09-27 14:10 | Emergency (ER) | payer OTHER, SELFPAY ==
[2024-09-27 14:43] VITALS: BP 123/67; PULSE 90; RESP 16; TEMP 37; O2SAT 98; BMI 20.4
--- NOTE | 2024-09-27 15:44 | ED.GENADULT ---
HPI - General Adult General Chief complaint: Laceration/Wound Stated complaint: cut part of thumb off Time Seen by Provider: 09/27/24 14:48 History of Present Illness HPI narrative: Patient is a 19-year-old woman with Ehler Danlos syndrome. She unfortunately slice the end of her left thumb off making a salad today. The tissue is missing. She does not have involvement of any exposed bone. The patient has difficulty with clotting which she relates to her pre-existing Ehler Danlos syndrome. She went to urgent care and they were unable to get the bleeding under control. It does appear the give her a tetanus shot. She otherwise is doing fine. No other complaints. No signs of infection. Related Data Home Medications ?Medication ?Instructions ?Recorded ?Confirmed bupropion HCl 75 mg tablet 75 mg PO QAM 06/21/23 09/27/24 sertraline 100 mg tablet 150 mg PO QDAY 06/21/23 09/27/24 Allergies Allergy/AdvReac Type Severity Reaction Status Date / Time No Known Drug Allergies Allergy Verified 09/27/24 14:41 Review of Systems Status of ROS: Reports: 10 or more systems reviewed and unremarkable except as noted in History and below [facility] Medical History Migraines ?G43.909 - Migraine, unspecified, not intractable, without status migrainosus (ICD-10) Thoracic outlet syndrome ?G54.0 - Brachial plexus disorders (ICD-10) Compartment syndrome ?T79.A0XA - Compartment syndrome, unspecified, initial encounter (ICD-10) No pertinent past medical history ?Z78.9 - Other specified health status (ICD-10) Surgical History No pertinent past surgical history ?Z78.9 - Other specified health status (ICD-10) Family History Brother Ulcerative colitis Social History Narrative: Student at [employer], sophomore year. Non-smoker. Alcohol, some weekends, not excessive. No illicit drugs. 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 What is your current living situation?: I presently have a place to live Problems where you live: no known problems In the past 12 months, utilities in danger of being shut off: no In past 12 months, lack of transportation kept you from medical appts, meetings, work, or getting things needed for daily living: no In the past 12 mos, have been you worried that your food would run out before you had money to buy more?: never true In the past 12 mos, the food you bought just didn't last and you didn't have money to buy more?: never true Smoking Status: Never smoker Second hand tobacco smoke exposure: No How often do you have a drink containing alcohol: never AUDIT-C Alcohol total score: 0 Non-prescribed substance use: denies use How often does anyone, including family, friends and others, physically hurt you: never How often does anyone, including family, friends and others, insult or talk down to you: never How often does anyone, including family, friends and others, threaten you with harm: never How often does anyone, including family, friends and others, scream or curse at you: never service: No Exam Narrative: Exam Narrative: EXAM GENERAL: Patient appears comfortable and well. EYES: No scleral icterus. LYMPH: No supraclavicular or cervical lymphadenopathy. SKIN: Visible skin seen during exam normal or with benign process only. EXT: Distal amputation of the tip of the left thumb with no bony involvement. PSYCH: Good eye contact, speech is not pressured. Const: Vital Signs, click to edit/add: Vital Signs - 24 hr 09/27/24 14:43 Temperature 98.6 F Pulse Rate [Pulse Oximeter] 90 Respiratory Rate 16 Blood Pressure [Ri ght Upper Arm] 123/67 Pulse Oximetry 98 Oxygen Delivery Me thod Room Air Course Course ED Course: Patient does have difficulties with clotting and as result bleeding was not stopped with direct pressure alone. I did make a mix of lidocaine and TXA and injected into the wound. Finger tourniquet was also employed. We did finally dress the wound with Surgicel and tightly wrapped the wound. At this point hemostasis has been achieved. Tetanus shot was updated in urgent care and patient is discharged home to change dressings daily after the 1st 36 hours. Vital Signs Vital signs: Initial Vital Signs Temperature 98.6 F 09/27/24 14:43 Temperature Source Temporal Artery Scan 09/27/24 14:43 Pulse Rate 90 09/27/24 14:43 Respiratory Rate 16 09/27/24 14:43 Blood Pressure 123/67 09/27/24 14:43 Blood Pressure Mean 85 09/27/24 14:43 Pulse Oximetry 98 09/27/24 14:43 Oxygen Delivery Method Room Air 09/27/24 14:43 Vital Signs Temperature 98.6 F 09/27/24 14:43 Pulse Rate 90 09/27/24 14:43 Respiratory Rate 16 09/27/24 14:43 Blood Pressure 123/67 09/27/24 14:43 Pulse Oximetry 98 09/27/24 14:43 Oxygen Delivery Method Room Air 09/27/24 14:43 Temperature 98.6 F 09/27/24 14:43 Pulse Rate 90 09/27/24 14:43 Respiratory Rate 16 09/27/24 14:43 Blood Pressure 123/67 09/27/24 14:43 Pulse Oximetry 98 09/27/24 14:43 Oxygen Delivery Method Room Air 09/27/24 14:43 Discharge Plan Discharge Clinical Impression: Laceration Patient Disposition: Home, Self-Care Condition: Stable Instructions: Laceration (ED) Additional Instructions: Change dressings daily starting on Sunday. Tylenol Motrin Ice Activity Level: No Restrictions Discharge Diet: Regular Prescriptions: No Action sertraline 100 mg tablet 150 mg PO QDAY bupropion HCl 75 mg tablet 75 mg PO QAM Follow Up/Referrals: Miles Farnsworth MD [Primary Care Provider] - Stand Alone Forms: MyHealth Info Instructions
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
--- OUTSIDE RECORDS SUMMARY | 2024-09-28 17:33 | XMS_ITS | Clinical Summary ---
Author Organization [facility], [facility], and [facility] Address [address] [facility]. [address]th [address] [place] [address] Care Team Providers Care Medical Research Assistant Name Role Phone Beltran Correa MD Unavailable [phone] Vikki Garcia MD Unavailable [phone] Suhail Morton MD Unavailable [phone] Vikki Garcia MD Primary Care Provider [phone] Allergies No known active allergies Medications sertraline 100 MG Tablet 0 Active Cholecalciferol 350 MCG ([address] UT) WaferIndication s:Vitamin Deficiency Take 1 Wafer by mouth Every Sunday. Indications: Vitamin Deficiency 8 Wafer 1 2 Active buPROPion 75 MG Tablet 5 Active Active Problems Problem Noted Date Diagnosed Date Thoracic outlet syndrome 01/17/2024 Radicular pain in right arm 12/20/2023 Upper back pain 12/20/2023 Neck pain 12/20/2023 Encounters Date Type Department Care Team Description 08/13/2024 3:30 PM EDT Office Visit [facility] [address] [facility], [address] [place] [phone] Suhail Morton MD 08/07/2024 11:21 AM EDT - 08/07/2024 11:59 PM EDT Hospital Encounter [facility] - TERE [address] [facility], [address] [place] [address] Discharge Disposition: Home or Self Care 08/06/2024 9:00 AM EDT Procedure [facility] - [address] [facility], [address], [place] [phone] Miles Driscoll MD 08/04/2024 1:45 PM EDT Office Visit [facility] - [address] [phone] Miles Driscoll MD Thoracic Outlet Syndrome; Headache; Neck Pain; Arm Pain 08/01/2024 8:49 AM EDT - 08/01/2024 11:59 PM EDT Hospital Encounter [facility] - DARSHAN MCCARTHYAYANACALLIE [address] [phone] Discharge Disposition: Home or Self Care 08/01/2024 8:30 AM EDT Office Visit [facility] [address] [phone] Suhail Morton MD from Last 3 Months Social History Tobacco Use Types Packs/Day Years Used Date Smoking Tobacco: Never Smokeless Tobacco: Never Tobacco Cessation:Counseling Given: Not Answered Alcohol Use Standard Drinks/Week Comments Yes 4 (1 standard drink = 0.6 oz pur e alcohol) Comments Unknown Sex and Gender Information Value Date Recorded Sex Assigned at Not on file Legal Sex Female 2:57 AM EST Gender Identity Not on file Sexual Orientation Not on file Last Filed Vital Signs Vital Sign Reading Time Taken Comments Blood Pressure 121/72 08/06/2024 9:37 AM EDT Pulse 87 08/06/2024 9:37 AM EDT Temperature 36.5 C (97.7 F) 08/06/2024 9:37 AM EDT Respiratory Rate 21 01/23/2024 2:41 PM EDT Oxygen Saturation 98% 08/04/2024 1:50 PM EDT Inhaled Oxygen Concentration - - Weight 61.2 kg (135 lb) 08/07/2024 11:23 AM EDT Height 175.3 cm (5' 9) 08/04/2024 1:50 PM EDT Body Mass Index 19.94 08/04/2024 1:50 PM EDT Plan of Treatment Health Maintenance Due Date Last Done Comments Chlamydia/GC Screening (ANNUAL) 08/17/2013 HIV SCREENING 08/17/2016 Hepatitis C screening 08/17/2021 COVID-19 Vaccine (4 - 2023-2 5 season) 2024 05/01/2021, 09/10/2020, 08/20/2020 Pap Smear 08/17/2024 IMM: DTap/ Tdap/ Td (7 - Td or Tdap) 08/26/2024 08/26/2014, 12/15/2008, 03/02/2005, Additional history exists IMM: Influenza (Season Ended) 2025, 05/01/2022, 04/03/2021, Additional history exists IMM: RSV (1 - 1-dose 75+ series) 08/17/2078 Pneumococcal Vaccine: Pediat rics (0 to 5 Years) and At-Risk Patients (6 to 49 Years) Completed 2004, 03/04/2004, 01/05/2004, Additional history exists IMM: HPV Completed 06/03/2015, 12/12, 11/23/2014 IMM: Meningococcal B Completed 11/28/2021, 10/25/19 Procedures Procedure Name Priority Date/Time Associated Diagnosis Comments MR CERVICAL SPINE WITHOUT IV CONTRAST Routine 08/07/2024 11:50 AM EDT Cervical radiculitis ARTERIAL DUPLEX FOR UPPER EXTREMITIES BILATERAL WITH THORACIC OUTLET Routine 08/01/2024 10:06 AM EDT Thoracic outlet syndrome from Last 3 Months Results * MR Cervical Spine without IV Contrast (08/07/2024 11:50 AM EDT) Anatomical Region Laterality Modality C-spine N/A Magnetic Resonan ce 08/04/2024 Impressions 08/07/2024 2:59 PM EDT 1. Straightening of the cervical lordosis. 2. Mild degenerative disc disease predominantly at C3-4 C4-5 and to a lesser degree at C5-C6. 3. No cord signal abnormality or impingement. Electronically Signed By: Frankie Hanks on August 07, 2024 02:56 PM I, Frankie Hanks, have personally reviewed this report and concur with its findings and conclusions, as affirmed by my electronic signature. Narrative 08/07/2024 2:59 PM EDT EXAMINATION: MRI OF THE CERVICAL SPINE WITHOUT INTRAVENOUS CONTRAST CLINICAL INFORMATION: M54.12 Radiculopathy, cervical region. TECHNIQUE: Magnetic resonance imaging was performed using multisequence, multiplanar technique without contrast. COMPARISON: None available. FINDINGS: Alignment: There is straightening of the normal cervical lordosis. Vertebrae: There is no compression fracture. Bone signal: Bone signal is within normal limits. Spinal canal: The spinal cord has normal morphology and signal intensity. There is no evidence of spinal cord impingement or other cord pathology. General degenerative changes: There is mild multilevel disc desiccation. Narrowing of the intervertebral disc space C3-4 and C4-5 and to a lesser degree C5-6. Craniocervical junction: There is no abnormality at the craniocervical junction. Atlantoaxial junction: There is no abnormality at the atlantoaxial junction. C2-C3: There is no significant disc displacement, disc-osteophyte, spinal canal stenosis or neural foraminal narrowing. C3-C4: There is no significant disc displacement, disc-osteophyte, spinal canal stenosis or neural foraminal narrowing. C4-C5: There is no significant disc displacement, disc-osteophyte, spinal canal stenosis or neural foraminal narrowing. C5-C6: There is no significant disc displacement, disc-osteophyte, spinal canal stenosis or neural foraminal narrowing. C6-C7: There is no significant disc displacement, disc-osteophyte, spinal canal stenosis or neural foraminal narrowing. C7-T1: There is no significant disc displacement, disc-osteophyte, spinal canal stenosis or neural foraminal narrowing. Additional observations: The imaged extraspinal structures are unremarkable. Procedure Note Frankie Hanks MD - 08/07/2024 EXAMINATION: MRI OF THE CERVICAL SPINE WITHOUT INTRAVENOUS CONTRAST CLINICAL INFORMATION: M54.12 Radiculopathy, cervical region. TECHNIQUE: Magnetic resonance imaging was performed using multisequence, multiplanartechnique without contrast. COMPARISON: None available. FINDINGS: Alignment: There is straightening of the normal cervical lordosis. Vertebrae: There is no compression fracture. Bone signal: Bone signal is within normal limits. Spinal canal: The spinal cord has normal morphology and signal intensity.There is no evidence of spinal cord impingement or other cord pathology. General degenerative changes: There is mild multilevel disc desiccation.Narrowing of the intervertebral disc space C3-4 and C4-5 and to a lesserdegree C5-6. Craniocervical junction: There is no abnormality at the craniocervicaljunction. Atlantoaxial junction: There is no abnormality at the atlantoaxialjunction. C2-C3: There is no significant disc displacement, disc-osteophyte, spinalcanal stenosis or neural foraminal narrowing. C3-C4: There is no significant disc displacement, disc-osteophyte, spinalcanal stenosis or neural foraminal narrowing. C4-C5: There is no significant disc displacement, disc-osteophyte, spinalcanal stenosis or neural foraminal narrowing. C5-C6: There is no significant disc displacement, disc-osteophyte, spinalcanal stenosis or neural foraminal narrowing. C6-C7: There is no significant disc displacement, disc-osteophyte, spinalcanal stenosis or neural foraminal narrowing. C7-T1: There is no significant disc displacement, disc-osteophyte, spinalcanal stenosis or neural foraminal narrowing. Additional observations: The imaged extraspinal structures areunremarkable. IMPRESSION: 1. Straightening of the cervical lordosis. 2. Mild degenerative disc disease predominantly at C3-4 C4-5 and to alesser degree at C5-C6. 3. No cord signal abnormality or impingement. Electronically Signed By: Frankie Hanks on August 07, 2024 02:56 PM I, Frankie Hanks, have personally reviewed this report and concur with its findings and conclusions, as affirmed by my electronicsignature. us Miles Driscoll MD [facility] [place] MRI PROCEDURES Final R esult * ARTERIAL DUPLEX FOR UPPER EXTREMITIES BILATERAL WITH THORACIC OUTLET (08/01/2024 10:06 AM EDT) Right vertebral PSV 60.0 cm/s XCELERA Left vertebral PSV 36.0 cm/s XCELERA Upper Arterial Right SubclAVian Prox PSV 180.0 cm/s XCELERA Upper Arterial Left SubclAVian Prox PSV 168.0 cm/s XCELERA Upper Arterial Left SubclAVian Prox Ratio 4.7 XCELERA Upper Arterial Right SubclAVian Mid PSV 115.0 cm/s XCELERA Upper Arterial Right SubclAVian Mid Ratio 0.6 XCELERA Upper arterial left arm subclavian sys max 115.0 cm/s XCELERA Upper Arterial Left Arm SubclAVian Ratio 0.7 XCELERA Upper Arterial Right SubclAVian Distal PSV 119.0 cm/s XCELERA Upper Arterial Right SubclAVian Distal Ratio 1.0 XCELERA Upper Arterial Left SubclAVian Distal PSV 97.0 cm/s XCELERA UPPER ARTERIAL LEFT SUBCLAVIAN DISTAL EDV 0.84 XCELERA Upper arterial right arm axillary sys max 133.0 cm/s XCELERA Upper Arterial Right Arm Axillary Ratio 1.1 XCELERA Upper arterial left arm axillary sys max 65.0 cm/s XCELERA Upper Arterial Left Arm Axillary Ratio 0.7 XCELERA Upper Arterial Right Brachial Prox PSV 78.0 cm/s XCELERA Right UA Brachial Prox Sys Ratio 0.6 XCELERA Upper Arterial Left Brachial Prox PSV 58.0 cm/s XCELERA Left UA Brachial Prox Sys Ratio 0.9 XCELERA UPPER ARTERIAL RIGHT BRACHIAL PROX EDV 79.0 cm/s XCELERA Right UA Brachial Mid Sys Ratio 1.0 XCELERA UPPER ARTERIAL LEFT BRACHIAL PROX EDV 75.0 cm/s XCELERA Left UA Brachial Mid Sys Ratio 1.3 XCELERA Upper Arterial Right Brachial Dist PSV 92.0 cm/s XCELERA Right UA Brachial Dist Sys Ratio 1.2 XCELERA Upper Arterial Left Brachial Dist PSV 87.0 cm/s XCELERA Left UA Brachial Dist Sys Ratio 1.2 XCELERA Upper Arterial Right Radial Prox PSV 52.0 cm/s XCELERA Right UA Radial Prox Sys Ratio 0.6 XCELERA Upper Arterial Left Radial Prox PSV 53.0 cm/s XCELERA Left UA Radial Prox Sys Ratio 0.6 XCELERA Upper Arterial Right Ulnar Prox PSV 34.0 cm/s XCELERA Upper Arterial Left Ulnar Prox PSV 26.0 cm/s XCELERA Left UA Ulnar Prox Sys Ratio 0.3 XCELERA Anatomical Region Laterality Modality Upper Extremities, Arm Ultrasoun d Narrative 08/02/2024 3:02 PM EDT Right Upper Extremity: After performance of provacative maneuvers, the study does not indicate thoracic outlet syndrome. Right Upper Arterial: No evidence of hemodynamically significant stenosis in the vessels of the right upper extremity. Left Upper Extremity: After performance of provacative maneuvers, the study indicates thoracic outlet syndrome in the mid/lateral subclavian artery. Left Upper Arterial: No evidence of hemodynamically significant stenosis in the vessels of the left upper extremity. Left Upper Arterial Color duplex evaluation of the left upper extremity arterial system reveals no evidence of hemodynamically significant arterial stenosis. Right Upper Arterial Color duplex evaluation of the right upper extremity arterial system reveals no evidence of hemodynamically significant arterial stenosis. Right Thoracic Outlet Syndrome Waveform analysis reveals normal waveforms of the right upper extremity at rest and with positional changes. Provocative maneuvers are performed to assess the subcalvian artery. The study does not indicate thoracic outlet syndrome. Left Thoracic Outlet Syndrome Provocative maneuvers are performed to assess the left subclavian artery. With the head tilted right, and the arm at 90 and 180 degrees, there was mild to moderate flow increase in the mid/lateral subclavian artery. At 90 degrees and head tilted to the right, PSV increased from 115cm/s to 207 cm/s and at 180 degrees with the head tilted to the right, PSV increased from 97 cm/s to 272 cm/s. The study indicates thoracic outlet syndrome. Procedure Description An upper extremity arterial duplex exam was performed. Sesay scale, color, and spectral Doppler were employed to evaluate the upper extremity arterial system. Vessels imaged using duplex ultrasonography included the subclavian, axillary, brachial, radial, and ulnar arteries. Suhail Morton MD CV VASCULAR PROCEDURES Fin al Result from Last 3 Months Insurance FOR[facility]LY [facility] [address] [place] [id number] Advance Directives * Default Full Code (Latest Code Status on File) Date Activated Date Inactivated Comments 01/23/2024 7:14 AM 01/23/2024 8:00 PM Care Teams Medical Research Assistant Relationship Specialty Start Date End Date Vikki Garcia MD [address] [place] [phone] PCP - PCP Assigned by Plan 08/08/21 Vikki Garcia MD [address] [place] [address] PCP - General 01/23/24 Beltran Correa MD [address] [place] [address] [address] [place] [address] Surgery - Orthopedic 12/19/19 Suhail Morton MD [address] [facility] [address] [place] [address] Surgery - Vascular 01/19/24
--- OUTSIDE RECORDS SUMMARY | 2024-09-28 17:33 | XMS_ITS | Clinical Summary ---
Author Organization [email or web address] [facility] & [facility] Address [address] [place] [address] Care Team Providers Care Investment Banking Manager Name Role Phone Miles Farnsworth MD Primary Care P rovider Allergies No known active allergies Medications buPROPion 75 mg HCl tabletIndication s:Obsessive-comp ulsive disorder, unspecified type Take 1 Tablet (75 mg) by mouth once daily. 90 Tablet 08/21/19 25 Active Additional Information Patient not taking.Reported on 09/19/2024 levonorgestrel (Mirena) 21 mcg/24 hours (8 yrs) 52 mg intrauterine device (IUD) Inject 1 Device intrauterine. 08/16/19 22 Active sertraline 100 mg tabletIndication s:Obsessive-comp ulsive disorder, unspecified type Take 1 Tablet (100 mg) by mouth once daily. 90 Tablet 09/18/19 25 Active sertraline 25 mg tabletIndication s:Obsessive-comp ulsive disorder, unspecified type Take 1 Tablet (25 mg) by mouth once daily in the morning. 90 Tablet 09/18/19 25 Active cholecalciferol, vitamin D3, (VITAMIN D3 ORAL) Take 1 Wafer by mouth. 09/05/19 22 025 Discontinu ed(Other - add note to specify (E-cancel not sent)) sertraline 25 mg tabletIndication s:Obsessive-comp ulsive disorder, unspecified type Take 1 Tablet (25 mg) by mouth once daily in the morning. 90 Tablet 08/21/19 25 025 Discontinu ed(Reorder (E-cancel not sent)) sertraline 100 mg tabletIndication s:Obsessive-comp ulsive disorder, unspecified type Take 1 Tablet (100 mg) by mouth once daily. 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 Obsessive-compulsive disorder 08/20/2024 Thoracic outlet syndrome 01/17/2024 Resolved Problems Problem Noted Date Diagnosed Date Resolved Date Upper back pain 12/20/2023 08/20/2024 Encounters Date Type Department Care Team Description 09/19/2024 3:30 PM CDT [place] [facility] [address] [place] [address] Sachin Minor MD CV Vascular New (TOS) 09/18/2024 Travel 09/17/2024 9:10 AM CDT Office Visit [facility] [address] [place] [address] Miles Farnsworth MD Follow Up (focus concerns- will do testing with therapist ) 09/17/2024 Travel 08/20/2024 9:10 AM CDT Office Visit [facility] [address] [place] [address] Miles Farnsworth MD Establish Care (bilateral neurogenic thoracic outlet syndrome symptoms) 08/20/2024 Travel 2024 Telephone [facility] [address] [place] [address] Sachin Minor MD Follow Up 08/15/2024 Orders Only [facility] [address] [place] [address] Boo David MD <No scans attached> from Last 3 Months Immunizations Immunization Administration Dates Next Due COVID-19 VACCINE SPIKEVAX (M ODERNA 50MCG/0.5ML) 12YO+ PFS 06/11/2023 Dtap Unspecified Formulation 12/15/2008, 03/02/2005,03/04/2004,01/04,2003 HPV 9 (Gardasil 9) 06/03/2015,12/28/2014, 015 Hepatitis A (Peds) 09/15/2009 Hepatitis A, Unspecified 09/06/2007 Hepatitis B, Unspecified 02/20/2005,05/19/2004,0 2003 Hib Conjugate, Unspecified 03/02/2005,,03/02/2004,01/04,2003 Influenza A (H1N1), Inactivated 09/15/2009 Influenza,LAIV3 Live Intrana stormy (Flumist) 01/26/2012 MENINGOCOCCAL VACCINE 2 VIAL 2MO-55YO (MENVEO) 12/05/2019 MMR 12/15/2008,2004 Meningococcal B 11/28/2021,10/24/2021 Meningococcal Mcv4, Unspecif ied Formulation 08/26/2014 Meningococcal, Unspecified 12/05/2019,08/26/2014 Pneumococcal conj 13-Valent (Prevnar 13) 2004,03/04/2004,01/05/2004,10/25 Pneumococcal, Unspecified 2004,,01/05/2004,10/25 Polio Virus, Unspecified 12/15/2008,02/12,01/03/2004,10/25 Tdap 08/26/2014 Varicella Vaccine 09/15/2009,2004 Social History Tobacco Use Types Packs/Day Years Used Date Smoking Tobacco: Never Smokeless Tobacco: Never Tobacco Cessation:Counseling Given: Yes Alcohol Use Standard Drinks/Week Comments Yes 0 (1 standard drink = 0.6 oz pure alcohol) on occasion; on weekends. Updated 09/19/2024 PHQ-2 Answer Date Recorded PHQ-2 TOTAL SCORE 0 09/17/2024 Social Connections Answer Date Recorded Do you often feel lonely or isolated from those around you? 0 08/20/2024 Financial Resource Strain Answer Date R ecorded Difficulty of Paying Living Expenses 3 08/20/2024 Difficulty of Paying Living Expenses Not on file 08/20/2024 Food Insecurity Answer Date Recorded Do you worry your food will run out before you are able to buy more? 1 08/20/2024 Transportation Needs Answer Date Record ed Does lack of transportation keep you from medica l appointments? 1 08/20/2024 Does lack of transportation keep you from work, meetings or getting things that you need? 1 08/20/2024 Housing Stability Answer Date Recorded What is your housing situation today? 1 08/20/2024 Utilities Answer Date Recorded Do you have trouble paying f or utilities (for example, heat, electricity, water, phone)? 1 08/20/2024 Comments No Sex and Gender Information Value Date Recorded Sex Assigned at Not on file Legal Sex Female 9:44 AM CDT Gender Identity Not on file Sexual Orientation Not on file Obstetrics History Last Filed Vital Signs Vital Sign Reading Time Taken Comments Blood Pressure 114/74 09/19/2024 3:29 PM CDT Pulse 82 09/19/2024 3:29 PM CDT Temperature 36.6 C (97.9 F) 05/21/2023 3:04 PM LOSS PREVENTION INVESTIGATOR Respiratory Rate 16 09/19/2024 3:29 PM CDT Oxygen Saturation 100% 09/19/2024 3:29 PM CDT Inhaled Oxygen Concentration - - Weight 59.9 kg (132 lb) 09/19/2024 3:29 PM CDT Height 175.3 cm (5' 9) 09/19/2024 3:29 PM CDT Body Mass Index 19.49 09/19/2024 3:29 PM CDT Plan of Treatment Health Maintenance Due Date Last Done Comments HIV for age 15-65 08/17/2018 Chlamydia for age 16-24 2019 Hepatitis C screening for ag e 18-79 08/17/2021 COVID-19 vaccine series (2023- season) 2024 06/11/2023, 02/08/2022, 05/01/2021, Additional history exists Pap test for age 21-65 08/17/2024 Tetanus booster 08/26/2024 08/26/2014 Influenza Vaccine (Season Ended) 2025 01/26/20 12 Depression screening for age 12+ 09/17/2025 09/18/19 25 BMI (ht and wt on same day) for age 18+ 09/19/2025 09/19/2024, 02/23/2022, 02/09/2022 Pneumococcal series for age 6-49 Completed 2004, 2004, 03/04/2004, Additional history exists Tdap Completed 08/26/2014 HPV series for age 9-26 Completed 06/03/19 16, 12/28/2014, 11/23/2014 Meningococcal series for age 11-21 Completed 12/05/2019, 12/05/2019, 08/26/2014, Additional history exists Insurance Care Teams Investment Banking Manager Relationship Specialty Start Date End Date Miles Farnsworth MD [address] [place] [address] PCP - General Family Practice 08/20/24
--- OUTSIDE RECORDS SUMMARY | 2024-09-28 17:33 | XMS_ITS ---
Author Organization [facility] Address [address] [place] [address] Care Team Providers Care Coil Repair Technician Name Role Phone PCP, Does Not Have a Primary Care Provider Unava Jl Mcclendon Unavailable [phone] REASON FOR VISIT CC/RESULTS SOCIAL HISTORY Sex Assigned At : Social History Observation Description Sex Assigned At Female Encounters Encounter Location Date Provider Diagnosis [address] [phone] 01/21/2024 Jl Askew PLAN OF TREATMENT No Information
--- OUTSIDE RECORDS SUMMARY | 2024-09-28 17:34 | XMS_ITS | Data Portability ---
Author Organization [facility], [facility]_Endocrinology_73_[facility] Address [address] [place] [id number] Assessment Encounter Date Assessment Date Assessment LastModified [...] Lab pregna ncy test, urine 2023 024 [facility]_[address], [address], 4 10:56:10 urinal ysis, dipsti ck 2023 024 [facility]_1084_nort [address], [address], 4 10:56:11 cultur e, urine 2023 024 [facility], [address] [place] [address], [address], 4 10:56:08 urinal ysis, dipsti ck 2022 023 [facility], [address] [facility], [place], [address], 3 12:55:36 tb (M tuberc ulosis ), ifn-ga mma tonio, blood 2022 023 [facility], [address] [place] [address], [address], [place], [address], 3 08:26:59 lipid panel, serum 2022 023 [email or web address] [facility], [address] [place] [address], [facility] 3, [place], [address], 3 10:29:44 CBC w/ diff [address] [facility], [address] [place] [address], [address], [place], [address], 3 14:19:06 iron + total iron-b inding capaci ty (TIBC) , serum [address] [facility], [address] [place] [address], [address], [place], [address], 3 14:19:09 Referral pelvic floor therap y referr al [address] [facility], [address] [place] [address], [address], 4 16:29:56 Procedures None record ed. Surgeries None record ed. Imaging None record ed. Medication Orders Macrob id 100 mg capsul e 2023 024 [id number], [address] [place], [id number], 4 15:20:39 Qbrexz a 2.4 % towele tte 2021 022 [facility] [place] [facility] [place] [place], [address] , [place], [place], [id number], 09:41:08 Patient TargetsNo targets recorded. 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 Please be advised that test results [...] if applicable. Not available 10/31/2023 13:27:33 12/09/2023 [id number] Urinary tract infection (UTI). Please start your [...] drinking cranberry juice. Please get the [facility] , an e mail has been sent to you maciej Not available 12/09/2023 10:56:18 Reason for Referral Pelvic Floor Therapy Referra l for Pelvic floor dysfunction Referring Physician: Jessica Morton, FENCE SETTER, Encounter Date: 10/31/2023 Results Created Date Observation Date Name Description Value Unit Range Abnormal Flag Note LastModifiedBy Organization Detail LastModifiedTime 12/13/1912/12/2021 SICKL E CELL SCR W RFX 24066 A hemoglobin (HGB) solubility Negati ve negati ve normal Not Available [facility] [address], [place], [address], 12/13/2021 23:06:11 11/03/19 23 11/02/2022 COMPL ETE BLOOD COUNT W/ DIFF bc-WBC 6.5 thous /mcL 3.8-11 .8 normal Not Available [facility] [address], [place], [address], 11/02/2022 14:19:06 11/03/19 23 11/02/2022 COMPL ETE BLOOD COUNT W/ DIFF bc-HGB 13.3 g/dL 11.1-1 5.3 normal Not Available [facility] [address], [place], [address], 11/02/2022 14:19:06 11/03/19 23 11/02/2022 COMPL ETE BLOOD COUNT W/ DIFF bc-HCT 40.2 % 33.3-4 5.9 normal Not Available [facility] [address], [place], [address], 11/02/2022 14:19:06 11/03/19 23 11/02/2022 COMPL ETE BLOOD COUNT W/ DIFF bc-plt 260 thous /mcL 140-40 0 normal Not Available [facility] [address] [facility] [address], [place], [address], 11/02/2022 14:19:06 11/03/19 23 11/02/2022 COMPL ETE BLOOD COUNT W/ DIFF bc-nasir# 4.00 thous /mcL 1.90-8 .20 normal Not Available [facility] [address] [facility] [address], [place], [address], 11/02/2022 14:19:06 11/03/19 23 11/02/2022 COMPL ETE BLOOD COUNT W/ DIFF bc-lymph# 1.90 thous /mcL 1.00-4 .00 normal Not Available [facility] [address] [facility] [address], [place], [address], 11/02/2022 14:19:06 11/03/19 23 11/02/2022 COMPL ETE BLOOD COUNT W/ DIFF bc-monos# 0.40 thous /mcL 0.20-1 .10 normal Not Available [facility] [address] [place] [address] 3, [place], [address], 11/02/2022 14:19:06 11/03/19 23 11/02/2022 COMPL ETE BLOOD COUNT W/ DIFF bc-eos# 0.10 thous /mcL 0.00-0 .50 normal Not Available [facility] [address] [place] [address] 3, [place], [address], 11/02/2022 14:19:06 11/03/19 23 11/02/2022 COMPL ETE BLOOD COUNT W/ DIFF bc-baso# 0.00 thous /mcL 0.00-0 .36 normal Not Available [facility] [address] [place], [place] [address]r 3, [place], [address], 11/02/2022 14:19:06 11/03/19 23 11/02/2022 COMPL ETE BLOOD COUNT W/ DIFF bc-nasir% 61.2 % 42.7-7 6.8 normal Not Available [facility] [address] [facility] [address], [place], [address], 11/02/2022 14:19:06 11/03/19 23 11/02/2022 COMPL ETE BLOOD COUNT W/ DIFF bc-lymphs% 29.8 % 15.0-4 4.0 normal Not Available [facility] [address], [place], [address], 11/02/2022 14:19:06 11/03/19 23 11/02/2022 COMPL ETE BLOOD COUNT W/ DIFF bc-monos% 6.7 % 4.3-10 .9 normal Not Available [facility] [address] [facility], [place], [address], 11/02/2022 14:19:11/03/19 23 11/02/2022 COMPL ETE BLOOD COUNT W/ DIFF bc-eos% 1.8 % 0.0-8. 1 normal Not Available [facility] [address] [place] [address] [address], [place], [address], 11/02/2022 14:19:06 11/03/19 23 11/02/2022 COMPL ETE BLOOD COUNT W/ DIFF bc-baso% 0.5 % 0.0-3. 0 normal Not Available [facility] [address] [place] [address] [address], [place], [address], 11/02/2022 14:19:06 11/03/19 23 11/02/2022 COMPL ETE BLOOD COUNT W/ DIFF bc-RBC 4.37 cierra ons/m cL 3.60-4 .90 normal Not Available [facility] [address] [place], [place] [address] [address], [place], [address], 11/02/2022 14:19:06 11/03/19 23 11/02/2022 COMPL ETE BLOOD COUNT W/ DIFF bc-MCV 92.0 fL 81.0-9 9.0 normal Not Available [facility] [address], [place], [address], 11/02/2022 14:19:06 11/03/19 23 11/02/2022 COMPL ETE BLOOD COUNT W/ DIFF bc-MCH 30.30 pg 24.70- 32.80 normal Not Available [facility] [address], [place], [address], 11/02/2022 14:19:06 11/03/19 23 11/02/2022 COMPL ETE BLOOD COUNT W/ DIFF bc-MCHC 33.0 g/dL 32.0-3 6.0 normal Not Available [facility] [address], [place], [address], 11/02/2022 14:19:06 11/03/19 23 11/02/2022 COMPL ETE BLOOD COUNT W/ DIFF bc-RDW 13.1 % 12.3-1 7.7 normal Not Available [facility] [address], [place], [address], 11/02/2022 14:19:06 11/03/19 23 11/02/2022 CORON TONE RISK PROFI LE cholesterol 142 mg/dL 50-200 normal Not Available [facility] [address], [place], [address], 11/02/2022 14:25:01 11/03/19 23 11/02/2022 CORON TONE RISK PROFI LE HDLC 60 mg/dL 40-60 normal Not Available [facility] [address], [place], [address], 11/02/2022 14:25:01 11/03/19 23 11/02/2022 CORON TONE RISK PROFI LE triglyceride 64 mg/dL 21-200 normal geoffrey l:<15 0 borde rline :150- 199 high: 200-4 99 very high: >500 Not Available [facility] [address], [place], [address], 11/02/2022 14:25:01 11/03/19 23 11/02/2022 CORON TONE RISK PROFI LE calculated LDL 69 mg/dL 20-100 normal Not Available [facility] [address], [place], [address], 11/02/2022 14:25:01 11/03/19 23 11/02/2022 CORON TONE RISK PROFI LE non-HDL 82.00 mg/dL Not Available [facility] [address], [place], [address], 11/02/2022 14:25:01 11/03/19 23 11/02/2022 CORON TONE RISK PROFI LE cholesterol/ HDL ratio 2.37 ratio Not Available [facility] [address], [place], [address], 11/02/2022 14:25:01 11/03/19 23 11/02/2022 IRON DEFIC IENCY PROFI LE 1iron 78 ug/dL 50-170 normal Not Available [facility] [address], [place], [address], 11/02/2022 14:25:02 11/03/19 23 11/02/2022 IRON DEFIC IENCY PROFI LE 1TIBC 387 ug/dL 250-45 0 normal Not Available [facility] [address], [place], [address], 11/02/2022 14:25:02 11/03/19 23 11/02/2022 IRON DEFIC IENCY PROFI LE 1ferritin 14.9 NG/mL 8.0-25 2.0 normal Not Available [facility] [address], [place], [address], 11/02/2022 14:25:02 11/03/19 23 11/02/2022 IRON DEFIC IENCY PROFI LE 1%sat 20 % 15-50 normal Not Available [facility] [address] [facility] [address], [place], [address], 11/02/2022 14:25:02 11/03/19 23 11/02/2022 QUANT IFERO [...] contr ol for the test. Not Available [facility] [address], [place], [address], 11/05/2022 08:26:59 11/03/19 23 11/02/2022 QUANT IFERO N - TB GOLD PLUS (CLIE NT INCUB ATED) quantiferon TB1 Ag value 0.01 IU/mL Not Available [facility] [address], [place], [address], 11/05/2022 08:26:59 11/03/19 23 11/02/2022 QUANT IFERO N - TB GOLD PLUS (CLIE NT INCUB ATED) quantiferon TB2 Ag value 0.00 IU/mL Not Available [facility] [address], [place], [address], 11/05/2022 08:26:59 11/03/19 23 11/02/2022 QUANT IFERO N - TB GOLD PLUS (CLIE NT INCUB ATED) quantiferon nil value 0.02 IU/mL Not Available [facility] [address], [place], [address], 11/05/2022 08:26:59 11/03/19 23 11/02/2022 QUANT IFERO N - TB GOLD PLUS (CLIE NT INCUB ATED) quantiferon mitogen value >10.00 IU/mL Not Available [facility] [address] [facility] [address], [place], [address], 11/05/2022 08:26:59 11/03/19 23 11/02/2022 QUANT IFERO [...] oassa y metho dolog y Not Available [facility] [address] [facility] [address], [place], [address], 11/05/2022 08:26:59 11/03/19 23 11/02/2022 urina lysis , dipst ick Color Yellow Not Available [facility], [address], 11/02/2022 10:19:24 11/03/19 23 11/02/2022 urina lysis , dipst ick Appearance Clear Not Available [facility] [address], [place], [address], 11/02/2022 10:19:24 11/03/19 23 11/02/2022 urina lysis , dipst ick Specific Hodge 1.020 Not Available [facility] [address], [place], [address], 11/02/2022 10:19:24 11/03/19 23 11/02/2022 urina lysis , dipst ick pH 7.0 Not Available [facility] [address], [address], 11/02/2022 10:19:24 11/03/19 23 11/02/2022 urina lysis , dipst ick Protein 1+ Not Available [facility] [address], [address], 11/02/2022 10:19:24 11/03/19 23 11/02/2022 urina lysis , dipst ick Glucose Neg Not Available [facility] [address], [address], 11/02/2022 10:19:24 11/03/19 23 11/02/2022 urina lysis , dipst ick Ketone Neg Not Available [facility] [address], [address], 11/02/2022 10:19:24 11/03/19 23 11/02/2022 urina lysis , dipst ick Occult Blood Neg Not Available [facility] [address], [address], 11/02/2022 10:19:24 11/03/19 23 11/02/2022 urina lysis , dipst ick Urobilogen 0.2 Not Available [facility]_[address] [place] [address], [address], 11/02/2022 10:19:24 11/03/19 23 11/02/2022 urina lysis , dipst ick Bilirubin Neg Not Available [facility], [address], 11/02/2022 10:19:24 11/03/19 23 11/02/2022 urina lysis , dipst ick Nitrite Neg Not Available [facility], [address], 11/02/2022 10:19:24 11/03/19 23 11/02/2022 urina lysis , dipst ick Leukocyte Esterase 1+ Not Available [facility] [address], [address], 11/02/2022 10:19:24 11/03/19 23 11/02/2022 heari ng scree mildred* Unknown Analyte normal Not Available [facility] [address], [address], 11/02/2022 10:18:38 11/03/19 23 11/02/2022 heari ng scree mildred* Unknown Analyte normal Not Available [facility] [address], [address], 11/02/2022 10:18:38 11/03/19 23 11/02/2022 heari ng scree mildred* Unknown Analyte normal Not Available [facility] [address], [address], 11/02/2022 10:18:38 11/03/19 23 11/02/2022 heari ng scree mildred* Unknown Analyte normal Not Available g_pe diatric s[address], [address], 11/02/2022 10:18:38 11/03/19 23 11/02/2022 heari ng scree mildred* Unknown Analyte normal Not Available g_pe diatric s[address], [address], 11/02/2022 10:18:38 11/03/19 23 11/02/2022 heari ng scree mildred* Unknown Analyte normal Not Available g_pe diatric s[address], [address], 11/02/2022 10:18:38 12/09/19 24 12/09/2023 urina lysis , dipst ick Unknown Analyte Trace Not Available [address], [address], 12/09/2023 10:48:08 12/09/19 24 12/09/2023 urina lysis , dipst ick Unknown Analyte Negati ve Not Available [place] [address], [address], 12/09/2023 10:48:08 12/09/19 24 12/09/2023 urina lysis , dipst ick Unknown Analyte 0.2 Not Available [address], [address], 12/09/2023 10:48:08 12/09/19 24 12/09/2023 urina lysis , dipst ick Unknown Analyte 30+ Not Available [address], [place], [address], 12/09/2023 10:48:08 12/09/19 24 12/09/2023 urina lysis , dipst ick Unknown Analyte 7.5 Not Available [facility]10 [address] [facility] [address] [place], [address], 12/09/2023 10:48:08 12/09/19 24 12/09/2023 urina lysis , dipst ick Unknown Analyte Negati ve Not Available [facility]1084[address] [facility] [address] [place], [address], 12/09/2023 10:48:08 12/09/19 24 12/09/2023 urina lysis , dipst ick Unknown Analyte 1.020 Not Available [facility]10 [address] [facility] [address] [place], [address], 12/09/2023 10:48:08 12/09/19 24 12/09/2023 urina lysis , dipst ick Unknown Analyte Negati ve Not Available [facility]1084_[address] rt _[place] [address] [place], [address], 12/09/2023 10:48:08 12/09/19 24 12/09/2023 urina lysis , dipst ick Unknown Analyte Negati ve Not Available [facility]1084_no rt [facility] [address] [place], [address], 12/09/2023 10:48:08 12/09/19 24 12/09/2023 urina lysis , dipst ick Unknown Analyte Negati ve Not Available [facility]1084[facility]no rt [facility] [address] [place], [address], 12/09/2023 10:48:08 12/09/19 24 12/09/2023 urina lysis , dipst ick Unknown Analyte Yellow Not Available [facility]10 [address] [facility] [address] [place], [address], 12/09/2023 10:48:08 12/09/19 24 12/09/2023 urina lysis , dipst ick Unknown Analyte Clear Not Available [facility]_10 [address] _[place] [address] [place], [address], 12/09/2023 10:48:08 12/09/19 24 12/09/2023 pregn gonzalez test, urine HCG (Ref. Range: Negative) negati ve Not Available [facility]10[address] rt [facility] [address] [place], [address], 12/09/2023 10:47:26 12/14/19 22 12/13/2021 US, pelvi s No observ ation record ed. [address] [facility] [address] [place], [address], 12/13/2021 14:03:55 01/03/20 22 01/02/2022 US, pelvi s No observ ation record ed. [address] [facility] [address] [place], [address], 01/02/2022 10:18:44 Result Notes None recorded. Problems Name Problem SNOMED Code Status Onset Date Resolution Date Notes Provider Name and Address Organization Details Recorded Time Multiple benign melanocy tic nevi 031100558 Active 2021 Cassia Mora MD [address] [facility],[address], [place], [address], [facility] 09:27:05 Primary focal hyperhid rosis of axilla 8586163506 9424794 Active 2021 Cassia Mora MD [address] [place] [address],[address], [place], [address], [facility] 2 09:27:07 Bonita is cutis 22123209 Active 2017 Descript ion: XEROSIS CUTIS Not Available [facility] 11:16:35 [place] 778238332 Active 2017 Not Available [facility] 11:16:35 Keratosi s pilaris 5877978 Active 2017 Not Available [facility] 11:16:35 Acute lymphade nitis of face, head and neck 735368917 Completed 201805/12/2019 Not Available [facility] 11:16:35 Impetigo 67423320 Completed 201805/12/2019 Descript ion: IMPETIGO , UNSPECIF IED Not Available [facility] 11:16:35 Acute pharyngi tis 244137281 Completed 201311/09/2013 Descript ion: PHARYNGI TIS, ACUTE Not Available [facility] 11:16:35 Problem Notes None recorded. Procedures Surgical History Date Name Laterality Status Provider Name and Address Organization Details Recorded Time 2 IUD Insertion completed Danette Schmid [facility] 08/15/2021 11:30:28 Imaging Results Imaging Date Name Status LastModified by Organiz ation Details LastModified Time 12/13/2021 US, pelvis completed [email or web address] [facility] [address] [place], [address], 12/13/2021 14:03:55 01/02/2022 US, pelvis completed [email or web address] [facility] [address] [place], [address], 01/02/2022 10:18:44 Procedure Notes None recorded. Medical [...] cm 100 mm[Hg] 60 mm[Hg] Madelaine Strauss [facility] 01/02/2022 09:54:26 Date Recorded Body height Body mass index (BMI) Body mass index (BMI) Percentile per age and sex Body weight Systolic blood pressure Diastolic blood pressure Provider Name and Address Organization Details Last Updated DateTime 3 173.36 cm 21.1 kg/m2 44 % 49760.6 3 g 104 mm[Hg] 62 mm[Hg] Mark amos [facility] 3 10:31:41 Date Recorded Body height Body mass index (BMI) Percentile per age and sex Body mass index (BMI) Body weight Systolic blood pressure Diastolic blood pressure Provider Name and Address Organization Details Last Updated DateTime 4 173.36 cm 50 % 21.7 kg/m2 82950.3 g 120 mm[Hg] 62 mm[Hg] Hannah Russell [facility] 4 13:31:15 Date Recorded Body height Oxygen saturation Oxygen saturation in Arterial blood by Pulse oximetry Respiratory rate Heart rate Body temperature Systolic blood pressure Diastolic blood pressure Provider Name and Address Organization Details Last Updated DateTime 4 173.36 cm 98 % 98 % 16 /min 62 /min 97.8 [degF] 116 mm[Hg] 60 mm[Hg] Micheal Chalorafita [facility] 4 10:42:36 Social History Question Answer Notes LastModified by Organizat ion Details LastModified Time Tobacco Smoking Status Never Smoker Not Available [facility] 03/15/2021 19:20:29 How Many Times Per Week Do You Exercise? 5-7 Times Per Week Information not available 08/09/2021 What Grade Are You In? [id number] [employer] Going To [employer] In The Fall Information not available 08/09/2021 [...] D etails LastModified Time What is your level of alcohol consumption? None Information not available 08/09/2021 What is your exercise level? Moderate Information [...] quadrivalent, PF 2 completed Hannah Russell null, [facility] 10/31/2023 13:32:06 Influenza, MDCK, quadrivalent, PF 3 completed Hannah Russell null, [facility] 10/31/2023 13:32:16 meningococcal B, OMV 2 completed Vikki Garcia MD [address] [facility],[address], [place], [address], [facility] 10/24/2021 13:35:25 meningococcal B, OMV 2 completed Vikki Garcia MD [address] [facility],[address], [place], [address], [facility] 11/28/2021 15:35:52 Tdap 5 completed Madelaine Strauss null, [facility] 12/13/2021 12:33:02 polio, unspecified formulation 4 completed Charito Noe null, [facility] 07/26/2021 09:23:20 polio, unspecified formulation 5 completed Charito Noe null, [facility] 07/26/2021 09:23:43 polio, unspecified formulation 9 completed Charito Noe null, [facility] 07/26/2021 09:23:51 MMR 5 completed Charito Noe null, [facility] 07/26/2021 09:24:09 MMR 9 completed Charito Noe null, [facility] 07/26/2021 09:24:17 Hib, unspecified formulation 4 completed Charito Noe null, [facility] 07/26/2021 09:24:35 Hib, unspecified formulation 4 completed Charito Noe null, [facility] 07/26/2021 09:24:44 Hib, unspecified formulation 4 completed Not Available [facility] 04/24/2022 00:57:32 Hib, unspecified formulation 4 completed [facility] 09:25:02 varicella 5 completed [facility] 07/26/2021 09:26:24 varicella 0 completed [facility] 12/13/2021 12:33:02 Pneumococcal conjugate PCV 13 4 completed Not Available [facility] 04/24/2022 00:57:31 Pneumococcal conjugate PCV 13 4 completed Not Available [facility] 04/24/2022 00:57:32 Pneumococcal conjugate PCV 13 4 completed Not Available [facility] 04/24/2022 00:57:32 Pneumococcal conjugate PCV 13 5 completed Not Available [facility] 04/24/2022 00:57:32 meningococcal ACWY, unspecified formulation 5 completed Not Available [facility] 04/24/2022 00:57:31 meningococcal ACWY, unspecified formulation 0 completed Not Available [facility] 04/24/2022 00:57:31 COVID-19, mRNA, LNP-S, PF, 30 mcg/0.3 mL dose 1 completed [facility] 12/13/2021 12:33:02 COVID-19, mRNA, LNP-S, PF, 30 mcg/0.3 mL dose 1 completed [facility] 12/13/2021 12:33:02 Hep A, unspecified formulation 8 completed [facility] 12/13/2021 12:33:02 pneumococcal, unspecified formulation 4 completed [facility] 12/13/2021 12:33:02 Influenza, split virus, quadrivalent, PF 9 completed Madelaine Strauss null, [facility] 12/13/2021 12:33:02 Hep B, unspecified formulation 5 completed Madelaine Strauss null, [facility] 12/13/2021 12:33:02 HPV9 5 completed [facility] 12/13/2021 12:33:02 HPV9 6 completed Madelaine Strauss null, [facility] 12/13/2021 12:33:02 Influenza, split virus, quadrivalent, PF 1 completed [facility] 12/13/2021 12:33:02 Hib, unspecified formulation 5 completed Madelaine [facility] 12:33:02 Influenza, live, trivalent, intranasal 2 completed Madelaine [facility] 12/13/2021 12:33:02 Hep A, ped/adol, 2 dose 0 completed [facility]elaine [facility] 12/13/2021 12:33:02 Hep B, unspecified formulation 5 completed [facility] 12/13/2021 12:33:02 pneumococcal, unspecified formulation 5 completed [facility] 12/13/2021 12:33:02 DTaP, unspecified formulation 4 completed [facility] 12/13/2021 12:33:02 Meningococcal MCV4O 0 completed Madelaine pérez, [facility] 12/13/2021 12:33:02 Influenza, split virus, quadrivalent, PF 7 completed [facility] 12:33:02 Influenza, split virus, quadrivalent, PF 0 completed [facility]13/[facility]21 12:33:02 DTaP, unspecified formulation 9 completed Madelaine Strauss [facility] 12/13/2021 12:33:02 DTaP, unspecified formulation 5 completed [facility]/13[facility]2021 12:33:02 meningococcal MCV4, unspecified formulation 5 completed [facility] 12/13/2021 12:33:02 Novel [id number], all formulations 0 completed [facility] 12/13/2021 12:33:02 pneumococcal, unspecified formulation 4 completed Madelaine Strauss [facility] 12/13/2021 12:33:02 Hep B, unspecified formulation 4 completed Madelaine Strauss [facility] 12/13/2021 12:33:02 pneumococcal, unspecified formulation 4 completed Madelaine Strauss [facility] 12/13/2021 12:33:02 Influenza, split virus, quadrivalent, PF 6 completed Madelaine Strauss [facility] 12/13/2021 12:33:02 COVID-19, mRNA, LNP-S, PF, 30 mcg/0.3 mL dose 1 completed [facility] 12[facility]13/2021 12:33:02 DTaP, unspecified formulation 4 completed [facility] 12/13/2021 12:33:02 Influenza, live, quadrivalent, intranasal 4 completed [facility] 12/13/2021 12:33:02 HPV9 5 completed [facility] 12/13/2021 12:33:02 polio, unspecified formulation 4 completed Madelaine pérez, [facility] 12/13/2021 12:33:02 Influenza, split virus, quadrivalent, PF 8 completed Madelaine pérez [facility] 12/13/2021 12:33:02 Influenza, split virus, quadrivalent, PF 5 completed Madelaine pérez [facility] 12/13/2021 12:33:02 DTaP, unspecified formulation 4 completed Madelainetyshawn pérez [facility] 12/13/2021 12:33:02 Past Encounters Encounter ID Performer Location Encounter Start Date Encounter Closed Date Diagnosis/Indication Diagnosis SNOMED-CT Code Diagnosis ICD10 Code Diagnosis Note [id number] MD TIA Moraes_Mikie garcia_73_ [facility] [address] [place] [address] 07/20/2021 10:32:48 07/20/2021 13:17:01 Contraception care management 117455383 Z30.9 [id number] MD TIA Putnam_OBGYN _[address] [place] [address] 08/09/2021 13:00:34 08/09/2021 13:34:28 Gynecologic examination 82922142 Z01.419 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 Pt understand s the importance of screening with pap smears for cervical precancers and cancer. Menorrhagia 510705095 N9 2.0 Pt will RTO for Mirena IUD insertion [id number] MD TIA Putnam_OBGYN [address] [place] [address] 08/15/2021 10:38:20 08/15/2021 11:31:29 Insertion of intrauterine contraceptive device 17123890 Z30.430 The patient will call for severe cramping, fever, abnormal bleeding, abnormal discharge or severe pelvic pain develop. The pt may take motrin or tylenol as directed for cramps. Pt will use condoms for 2 wks RTO 4 weeks for sono and exam [id number] MD TIA Putnam_OBMELITA _[address] [place] [address] 09/12/2021 10:28:47 09/12/2021 11:14:17 IUD check 167653138 Z30.431 Pt is doing well with IUD. WIll RtO 1 year for annual exam. [id number] MD TIA Moraes_Mikie trics_73_ [address] [address] 10/24/2021 13:16:12 10/24/2021 16:01:51 Well child visit 886407493 Z00.129 [id number] MD TIA Moraes_Mikie trics_73_ [address] [address] 11/28/2021 15:28:29 11/29/2021 14:59:55 Vaccination given 994535010 Z23 Chest wall pain 38745984 6 R07.89 probable costochond ritis vs muscle strain [id number] MD TIA Putnam_OBGYN [address] [place] [address] 12/13/2021 11:21:32 12/13/2021 13:58:09 Acute pelvic pain 795020236 R10.2 most likely secondary to ovarian cyst. Continue taking celebrex as needed for pain Cyst of right ovary [id number] 3067410 N83.201 Pt previously had cyst 3.5 cm in September. Uncertain if this cyst is a new one or enlargemen t of the one in september. Pt will RTO in 4 weeks for repeat sonogram to check for growth or resolution . [id number] MD TIA Putnam_OBGYN [address] [place] [address] 01/02/2022 09:45:50 01/02/2022 10:17:48 Cyst of right ovary [id number] 3552793 N83.201 Cysts appear to be funcional. reassured pt. [id number] MD BROOKE BranchG_Dermdavid tology_[address] [address] 04/25/2022 09:07:03 04/26/2022 08:56:42 Primary focal hyperhidrosis of axilla [id number] 5474112 L74.510 Reviewed diagnosist reatment options discussed Will do trial of qbrexza wipes nightly for the next monthSED and reviewed importance of washing hands after useif no improvemen t consider oral glyocpyrro late Multiple b enign melanocytic nevi 312056562 D22.9 No concerning lesions on exam Regarding nevi, we reviewed concerning signs such as asymmetry, border irregulari ty, color change, growth in diameter or elevation and discussed prompt re-evaluat ion for changes including but not limited to size, shape, or color. Sun protection was reviewed in detail, including mid-day sun avoidance, seeking senior living in the shade, covering with hat/protec tive clothing, and sunscreen use. We encouraged re-evaluat ion of the skin at home on a monthly basis at home and f/u yearly Jose Granger DO WMG_Pedia trics_73_ [address] [address] 11/02/2022 10:12:43 11/02/2022 11:50:12 Adult health examination 407894146 Z00.00 discussed all anticipato ry guidance Depression screening 171 560364 Z13.31 [id number] Jessica Morton MD [facility]_OBGYN _[address] [address] [place] [address] 10/31/2023 13:12:01 10/31/2023 16:29:55 Gynecologic examination 29230588 Z01.419 Pt. is a well 18 year old with a normal ROS and PE. Self breast exam was instructed gc/ct declined Pelvic mireya or dysfunction 697075988 M62.9 pfdL>Rpelv ic floor PT Surveillan ce of intrauterine device contraception done 6624875708 53740 Z30.431 mirena in situdoing well [id number] Eduard marr MD [facility]_1084_ [facility] [place]_[facility] [address] [place] [address] 12/09/2023 10:02:03 12/09/2023 11:31:18 Acute urinary tract infection 631549048 N39.0 1) UTI Urinary symptoms x 7 [...] Recorded Advance Directives Directive None Recorded Payers Insurance Date Sequence Insurance Name Policy Number Policy Conner Covered Member ID Conner Member ID Guarantor Name 05/16/2021 1 FORMERLY [facility] [id number] Joanne G [facility] [id number] [facility] 11/02/2022 1 [facility] [id number] [facility] 11/02/2022 1 FORMERLY [facility] - OPEN ACCESS PLUS (POS) [id number] Joanne [facility] [id number] Joanne [facility] 12/09/2023 1 [facility] (PPO) [id number] Joanne Phamstein [id number] Joanne [facility] 11/02/2022 1 [place] Joanne Meyer Alfonzo [id number] [facility] Notes Date Note Type Note Provider Name [...] New CL cyst 4.2 cm. Danette pérez, [facility] 01/02/2022 10:17:43 04/25/2022 text/html FMH:MOther and M GF has hx of bcc/mmNew Patient, but has seen JOSUE Wray 12/19/2017PMH:noNew or Cancer concern:-hyperhidros is excessive sweating underarms x yrshas tried many deodorants and otc treatments without benefitno particular new or changing moles of concernHx of tanning beds:noHX of blistering Sunburn:no Cassia Mora MD [address], [place], [address], [facility] 04/25/2022 09:30:15 11/02/2022 text/html no general concerns Jose Granger DO [address] [facility],[address], [place], [address], [facility] 11/02/2022 11:50:08 10/31/2023 text/html Annual GYNReport ed bypatient.Urinary symptoms:No hematuria; No incontinence Vulva:No genital lesion Vagina:Normal vaginal discharge Breast:No breast pain; No breast lump; No nipple discharge Sexual complaints:No sexual complaints; No pain during intercourse; Normal libido Menopausal Symptoms:No menopausal symptoms; Normal vaginal lubrication Psychological symptoms:No depression; No anxiety; No PMDD Patient presents for annual exam. 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 Periods: {{ regular irregular * none}} mirena Breast issues: {{ no* pain lump}} Medication cost concerns: {{ no* yes n/a}} several months of pelvic pain sp sexhas clicking hips from runninghas seen ortho before Jessica Morton MD [address], [place], [address], [facility] 10/31/2023 16:29:51 12/09/2023 text/html note 18 yo female patient presents with c/o 7 days urinary frequency and vesical tenesmusPatient denies dysuria, nausea, chills, vomiting, fever, flank pain, back pain/myalgia, blood in urine, vaginal irritation/pruritus or vaginal discharge.Patient is sexually active with both.last intercourse last 2 mos No hx of STD's Eduard Marquis MD [address] [place] [address],[address], [place], [address], [facility] 12/09/2023 15:04:50 OBGyn Episode No OBEpisode recorded.
--- OUTSIDE RECORDS SUMMARY | 2024-09-28 17:34 | XMS_ITS | Clinical Summary ---
Author Organization [facility] Address [address] [place], [place] [address] Care Team Providers Care Diffuser Operator Name Role Phone Laith Perdomo MD Primary Care Provider [phone] Leodan Lopez MD Unavailable [phone] Allergies No known active allergies Medications buPROPion 75 mg oral tablet 07/19/2024 Active sertraline (ZOLOFT) 100 mg oral tablet Active Active Problems Problem Noted Date Diagnosed Date Thoracic outlet syndrome 01/17/2024 Neck pain 12/20/2023 Radicular pain in right arm 12/20/2023 Upper back pain 12/20/2023 Multiple benign melanocytic nevi 04/24/2022 Primary focal hyperhidrosis of axilla 04/24/2022 Acute lymphadenitis of face, head and neck 04/13 Impetigo 04/13/2019 Overview (09/02/2024): Description: IMPETIGO, UNSPECIFIED Asteatosis cutis 12/19/2017 Overview (09/02/2024): Description: XEROSIS CUTIS [place] 12/19/2017 Keratosis pilaris 11/05/2017 Acute pharyngitis 10/26/2013 Overview (09/02/2024): Description: PHARYNGITIS, ACUTE Encounters Date Type Department Care Team Description 09/02/2024 3:00 PM CDT Office Visit [facility]rology - 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 Gender Identity Not on file Sexual Orientation Not on file Plan of Treatment Health Maintenance Due Date Last Done Comments Chlamydia/Gonorrhea Screening 2003 Evaluate Sexual History 2003 Hepatitis C Screening 2003 Pap Smear 2003 Anxiety Screening (KOJO-2) 08/17/2004 Depression Assessment (PHQ-2) 08/17/2004 COVID-19 Vaccine ( - 2023-2 5 season) 2024 06/11/2023, 05/01/2021, 09/10/2020, Additional history exists Adult Tetanus Booster 08/26/2024 08/26/2014 Influenza Vaccine (Season Ended) 2025 05/11/2023, 05/01/2022, 04/03/2021, Additional history exists RSV Vaccines (1 - 1-dose 75+ series) 08/17/2078 Pneumococcal Vaccine Completed 2004, 03/04/2004, 01/05/2004, Additional history exists HPV Vaccine Completed 06/03/2015, 12/12, 11/23/2014 Meningococcal B Vaccine Completed 11/28/2021, 10/24 Insurance [facility] Care Teams Diffuser Operator Relationship Specialty Start Date End Date Laith Perdomo MD [address] [place] [address] PCP - General 07/16/24 Leodan Lopez MD [address] [facility] [address] [place] [address] Neurology 07/16/24
--- OUTSIDE RECORDS SUMMARY | 2024-09-28 17:34 | XMS_ITS | Encounter Summary ---
Author Organization [facility] Address [address] [place] [address] Care Team Providers Care Physiotherapist'S Assistant Name Role Phone Laith Perdomo MD Primary Care Provider [phone] Leodan Lopez MD Unavailable [phone] Reason for Visit * Reason Comments Headache Encounter Details Date Type Department Care Team (Late st Contact Info) Description 09/02/2024 3:00 PM CDT Office Visit [facility] - 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 She notes that she has been intervening for neurogenic thoracic outlet syndrome. She had a cervicalrib resected and now getting symptoms on both sides. She also notes that there has been some numbness in her feet. Though she clarifies no loss of sensation but rather paresthesias. She is not finding improvement with PT. The pain is in the back of the head and radiating to the back of her eyes, even in her face. She also notes some weakness in her arms. Also some tremors. She started having headaches only about 3 months prior. She associates the headaches as coming from the shoulders and base of the neck. There is no response to Advil She had a scalene block and this did abort her headaches, but only for an hour. She is going to see [place] for options for the thoracic outlet syndrome She notes that hunching over for typing gives her a headache. Pain is fairly constant for a few months She notes associated brain fog No sensitivity to light / sound No nausea No vision changes but her eyes can bother her She used verapamil for 2 weeks but did not help No family history of headaches She also tried a friend's Ubrelvy and this was not helpful Past Medical History/Past Surgical History: No past medical history on file. Past Surgical History: Procedure Laterality Date EXCISION 1ST &/CERVICAL RIB No Known Allergies Current Outpatient Medications Medication Sig Dispense Refill buPROPion 75 mg oral tablet sertraline (ZOLOFT) 100 mg oral tablet No current facility-administered medications for this visit. Social History: Social History Socioeconomic History Marital status: Single Spouse name: Not on file Number of children: Not on file Years of education: Not on file Highest education level: Not on file Occupational History Not on file Tobacco Use Smoking status: Never Smokeless tobacco: Never Substance and Sexual Activity Alcohol use: Never Drug use: Never Sexual activity: Not on file Other Topics Concern Not on file Social History Narrative Not on file Social Drivers of Health Financial Resource Strain: Not on file Food Insecurity: Not on file Transportation Needs: Not on file Physical Activity: Not on file Stress: Not on file Social Connections: Not on file Intimate Partner Violence: Not on file Housing Stability: Not on file Family History: No family history on file. Imaging, Tests, Records Reviewed Physical Examination: Significant tenderness to palpation over neck and shoulder musculature NEUROLOGICAL: MENTAL STATUS: Alert and oriented. Thought process and content unremarkable. Follows commands appropriately. Speech fluent. CN: II: Visual coyne intact. PERRLA. No Papilledema. III, IV, : EOMI. Normal saccades. V: Symmetric facial sensation to light touch. VII: Face symmetric. VIII: Hearing symmetric. No nystagmus. IX, X: Symmetric palatal rise. XI: Symmetric shoulder shrug. XII: Tongue midline with symmetric movements. MOTOR: RIGHT UE: LEFT UE Deltoid 5/5 5/5 Biceps 5/5 5/5 Triceps 5/5 5/5 Finger abd 5/5 5/5 RIGHT LE: LEFT LE: HF 5/5 5/5 KE 5/5 5/5 PF 5/5 5/5 DF 5/5 5/5 REFLEXES: RIGHT: LEFT: Biceps 2/4 2/4 Brachioradialis trace - possibly technically limited Patellar 2/4 2/4 Achilles 2/4 2/4 SENSATION: Pin sensation, light touch intact and symmetric. CEREBELLAR: Normal F-N-F. Normal H-S. No dysmetria. No nystagmus. GAIT: Stable primary gait. Impressions: 19 year old female presents with headaches. She has already undergone a number of interventions forthoracic outlet syndrome. She is going to see [place] for this. Though I am not sure if this truly explains the headaches she describes. These do not have migrainous features and thus chronic tension-type headaches. Will need records of MRI brain, she notes unremarkable, performed at [place]. Her MRI of the cervical spine was unremarkable. We discussed a number of options. I pointed out that a course of steroids could be considered as well as a number of preventive medications. But she wanted to hold off on started medications currently. She was hoping for some sort of temporizing injection. She has quite tender areas around a numberof muscles so thought a trial of some trigger point injections would be reasonable. Additionally, the radiating from the occiput to her eye could suggest occipital neuralgia. If she wanted to move forward with this, she will let me know. I spent 47 minutes on the date of encounter with the patient and before and after the visit on activities detailed in the above note (this does not include time spent preparing and administering trigger point injections) which may include reviewing the EMR, documenting clinical information, and communicating with other health acute care certified nursing assistant. Leodan Lopez MD 4 cc of 1% lidocaine divided into injections of 0.5cc each. 1 in medial trap bilateral, 1 in upper trap bilateral, 1 in lower cervical paraspinals bilateral, and 1 in upper paraspinal on right side. Mild spotting / trivial blood loss, patient declined band-aid Pre-injection 10/21 Post-injection 10/21 Patient stated a little better but continued to rank pain at 10/21 documented in this encounter Plan of Treatment Not on file documented as of this encounter Visit Diagnoses Diagnosis Chronic tension-type headache, intractable- Primary Chronic tension type headache documented in this encounter Care Teams Physiotherapist'S Assistant Relationship Specialty Start Date End Date Laith Perdomo MD [address] [place] [address] PCP - General 07/16/24 Leodan Lopez MD [address] [place] [address] [address] [place] [address] Neurology 07/16/24 documented as of this encounter
--- OUTSIDE RECORDS SUMMARY | 2024-09-28 17:34 | XMS_ITS | Referral Summary ---
Author Organization [facility] Address [address] [place] [address] Care Team Providers Care System Safety Manager Name Role Phone Laith Perdomo MD Primary Care Provider [phone] Leodan Lopez MD Unavailable [phone] Encounters Date Type Department Care Team Description 09/02/2024 3:00 PM CDT Office Visit [facility] - [address] [place] [phone] Leodan Lopez MD Chronic tension-type headache, intractable (Primary Dx) from Last 3 Months Allergies No known active allergies Medications buPROPion [...] pharyngitis 10/26/2013 Overview (09/02/2024): Description: PHARYNGITIS, ACUTE Social History Tobacco Use Types Packs/Day Years Used Date Smoking Tobacco: Never Smokeless Tobacco: Never Tobacco Cessation:Counseling Given: Not Answered Alcohol Use Standard Drinks/Week Comments Never 0 (1 standard drink = 0.6 oz pur e alcohol) Comments Unknown Sex and Gender Information Value Date Recorded Sex Assigned at Not on file 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
== END 2024-09-27 16:05 | disposition home or self-care (01) ==
PROVIDERS: Emergency Provider Internal Medicine; PCP Student in an Organized Health Care Education/Training Program
DX: S61.012A Laceration without foreign body of left thumb without damage to nail, initial encounter (principal); W26.0XXA Contact with knife, initial encounter
CPT/HCPCS: 99283